=== PATIENT | female | born 1935 | race Caucasian/White ===

== ENCOUNTER → 2018-01-29 15:19 | Outpatient (CLI) | payer MEDICARE, OTHER, SELFPAY ==
--- NOTE | 2018-01-29 15:21 | DI.RAD.S_ITS ---
PROCEDURE: XR FINGER RT MIN 2V INDICATIONS: crushing injury with laceration 2 days TECHNIQUE: AP hand, 2 views of the middle finger(s) acquired. COMPARISON: None. FINDINGS: Bones: There may be a nondisplaced fracture through the proximal shaft of the distal phalanx of the middle finger. Degenerative joint disease incidentally noted. Soft tissues: No suspicious soft tissue calcifications. IMPRESSION: Possible nondisplaced fracture distal phalanx of the middle finger. Reexamination in 7-10 days advised. Dictated by: Jan Cali M.D. on 01/29/2018 at 15:45 Approved by: Jan Cali M.D. on 01/29/2018 at 15:49
== END ==
PROVIDERS: Family Provider Family Medicine; PCP Family Medicine; Visit Provider Internal Medicine
DX: S67.192A Crushing injury of right middle finger, initial encounter (principal)
CPT/HCPCS: 73140

== ENCOUNTER → 2018-09-17 12:21 | Outpatient (CLI) | payer MEDICARE, OTHER, SELFPAY ==
--- NOTE | 2018-09-17 | DI.MG.S_ITS ---
BILATERAL DIGITAL SCREENING MAMMOGRAM 3D/2D WITH CAD POST LUMPECTOMY: 09/17/2018 CLINICAL: Routine screening. Personal history of right breast cancer. Family history of breast cancer. Comparison is made to exams dated: 09/15/2017 mammogram, 09/05/2016 mammogram, 09/04/2015 mammogram, and 09/01/2014 mammogram - [facility]. There are scattered fibroglandular elements in both breasts. Current study was also evaluated with a Computer Aided Detection (CAD) system. There are benign post operative findings in the right breast. There also are benign vascular calcifications in both breasts. No significant masses, calcifications, or other findings are seen in either breast. There has been no significant interval change. IMPRESSION: There is no mammographic evidence of malignancy. A 1 year screening mammogram is recommended. This exam was interpreted at Station ID: [id number]. NOTE: For mammograms, a report in lay terms will be sent to the patient. Approximately 15% of breast malignancies will not be visualized mammographically. In the management of a palpable breast mass, a negative mammogram must not discourage biopsy of a clinically suspicious lesion. Electronically Signed By: Fausto garcia/dai:09/17/2018 17:53:08 letter sent: Normal Exam ACR BI-RADS Category 2: Benign Finding(s) 3342F
[2018-09-17 14:18] LABS: Add Manual Diff / Slide Review NO; Basophils Absolute Auto 100 /uL (0-100); Basophils Percent Auto 1.7 % (0-2); Eosinophils Absolute Auto 100 /uL (0-450); Eosinophils Percent Auto 2.2 % (2-4); Hematocrit 41.5 % (36-46); Hemoglobin 13.9 g/dL (12.0-16.0); Lymphocytes Absolute Auto 1400 /uL (1100-4500); Lymphocytes Percent Auto 32.8 % (25-40); Mean Corpuscular HGB Conc 33.6 % (30-36); Mean Corpuscular Volume 95.3 fL (80-100); Monocytes Absolute Auto 300 /uL (0-900); Monocytes Percent Auto 5.9 % (3-14); Neutrophils Absolute Auto 2400 /uL (1500-7000); Neutrophils Percent Auto 57.4 % (50-75); Platelet Count 298 X10^3/uL (150-400); Red Blood Cell Count 4.36 X10^6/uL (4.0-5.2); Red Cell Distribution Width 14.2 % (11.6-14.8); White Blood Cell Count 4.2 X10^3/uL (4.5-11.0)
[2018-09-17 15:43] LABS: Alanine Aminotransferase 22 IU/L (9-52); Albumin 4.3 g/dL (3.5-5.0); Albumin Globulin Ratio 1.5 (1.0-2.8); Alkaline Phosphatase 98 U/L (38-126); Aspartate Aminotransferase 21 IU/L (14-36); BUN Creatinine Ratio 32.5 (6-22); Bilirubin Total 0.6 mg/dL (0.2-1.3); Blood Urea Nitrogen 26 mg/dL (7-17); Calcium 9.5 mg/dL (8.4-10.2); Carbon Dioxide 29 mmol/L (22-32); Chloride 100 mmol/L (98-107); Cholesterol 276 mg/dL (140-199); Estimated Glomerular Filt Rate > 60.0 mL/min (>60); Globulin 2.9 g/dL (1.7-4.1); Glucose 96 mg/dL (80-110); HDL Cholesterol 87 mg/dL (40-60); HEMOLYSIS < 15 (0-50); LDL Cholesterol Calculated 173 mg/dL (<100); Potassium 4.4 mmol/L (3.4-5.1); Sodium 138 mmol/L (137-145); Total Protein 7.2 g/dL (6.3-8.2); Triglycerides 78 mg/dL (35-150)
== END ==
PROVIDERS: PCP Family Medicine; Visit Provider Family Medicine
DX: Z12.31 Encounter for screening mammogram for malignant neoplasm of breast (principal); Z85.3 Personal history of malignant neoplasm of breast; Z80.3 Family history of malignant neoplasm of breast; E03.9 Hypothyroidism, unspecified; E78.2 Mixed hyperlipidemia
CPT/HCPCS: 36415; 77063; 77067; 80053; 80061; 84443; 85025

== ENCOUNTER → 2019-05-31 14:14 | Outpatient (CLI) | payer MEDICARE, OTHER, SELFPAY ==
--- NOTE | 2019-05-31 14:22 | DI.RAD.S_ITS ---
PROCEDURE: XR CHEST 2V INDICATIONS: r/o pnx TECHNIQUE: 2 views of the chest were acquired. COMPARISON: [facility], CHEST 2 VIEW, 11/05/2008, 14:20. [facility], CHEST 2 VIEW, 07/25/2006, 16:57. FINDINGS: Surgical changes and devices: Right breast and right axilla surgical clips. Lungs and pleura: Lungs appear clear. No pleural effusions or pneumothorax. Mediastinum: Mediastinal contours are normal. Heart size is normal. Bones and chest wall: No suspicious bony abnormalities. Soft tissues appear unremarkable. IMPRESSION: No acute cardiopulmonary abnormality. Dictated by: Vernon Nguyen M.D. on 05/31/2019 at 15:01 Approved by: Vernon Nguyen M.D. on 05/31/2019 at 15:02
== END ==
PROVIDERS: PCP Family Medicine; Visit Provider Nurse Practitioner
DX: R05 Cough (principal)
CPT/HCPCS: 71046

== ENCOUNTER → 2020-04-14 16:22 | Outpatient (CLI) | payer MEDICARE, OTHER, SELFPAY ==
--- NOTE | 2020-04-14 | DI.MG.S_ITS ---
BILATERAL DIGITAL SCREENING MAMMOGRAM 3D/2D WITH CAD: 04/14/2020 CLINICAL: Routine screening. Personal history of right breast cancer. Family history of breast cancer. Comparison is made to exams dated: 09/17/2018 mammogram, 09/15/2017 mammogram, and 09/05/2016 mammogram - [facility]. There are scattered fibroglandular elements in both breasts. Current study was also evaluated with a Computer Aided Detection (CAD) system. There are benign vascular calcifications in both breasts. There also are benign post operative findings in the right breast. No significant masses, calcifications, or other findings are seen in either breast. There has been no significant interval change. IMPRESSION: BENIGN There is no mammographic evidence of malignancy. A 1 year screening mammogram is recommended. This exam was interpreted at Station ID: [id number]. NOTE: For mammograms, a report in lay terms will be sent to the patient. Approximately 15% of breast malignancies will not be visualized mammographically. In the management of a palpable breast mass, a negative mammogram must not discourage biopsy of a clinically suspicious lesion. Electronically Signed By: Cresencio lui/dai:04/14/2020 17:16:39 letter sent: Normal Exam ACR BI-RADS Category 2: Benign Finding(s) 3342F
== END ==
PROVIDERS: PCP Family Medicine; Referring Provider Family Medicine; Visit Provider Family Medicine
DX: Z12.31 Encounter for screening mammogram for malignant neoplasm of breast (principal); Z85.3 Personal history of malignant neoplasm of breast; Z80.3 Family history of malignant neoplasm of breast
CPT/HCPCS: 77063; 77067

== ENCOUNTER → 2020-09-24 16:08 | Outpatient (CLI) | payer MEDICARE, OTHER, SELFPAY ==
--- NOTE | 2020-09-24 16:12 | DI.RAD.S_ITS ---
PROCEDURE: XR HAND LT MIN 3V INDICATIONS: l hand pain TECHNIQUE: 3 views of the hand(s) acquired. COMPARISON: None. FINDINGS: Bones: No fractures or dislocations. Carpal bones are normally aligned. No suspicious bony lesions. 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 Mild to moderate 1st through 5th interphalangeal joint osteoarthritis. Mild 2nd through 5th MCP joint osteoarthritis. Soft tissues: No suspicious soft tissue calcifications. IMPRESSION: No fracture. No acute osseous lesion. If symptoms and/or clinical suspicion for pathology persists, further assessment with repeat radiographs (7-10 days) or advanced imaging (e.g. CT, MRI or bone scan) should be considered. Dictated by: Edith Tate MD, PhD on 09/24/2020 at 16:46 Approved by: Edith Tate MD, PhD on 09/24/2020 at 16:47
== END ==
PROVIDERS: PCP Family Medicine; Referring Provider Physician Assistant; Visit Provider Physician Assistant
DX: M79.642 Pain in left hand (principal)
CPT/HCPCS: 73130

== ENCOUNTER → 2020-10-28 08:33 | Outpatient (CLI) | payer MEDICARE, OTHER, SELFPAY ==
[2020-10-28 09:42] LABS: Add Manual Diff / Slide Review NO; Basophils Absolute Auto 0 /uL (0-100); Eosinophils Absolute Auto 100 /uL (0-450); Eosinophils Percent Auto 3.7 % (2-4); Hematocrit 38.5 % (36-46); Hemoglobin 12.8 g/dL (12.0-16.0); Lymphocytes Absolute Auto 1200 /uL (1100-4500); Lymphocytes Percent Auto 32.8 % (25-40); Mean Corpuscular HGB Conc 33.2 % (30-36); Mean Corpuscular Hemoglobin 31.8 PG (26-34); Mean Corpuscular Volume 95.9 fL (80-100); Monocytes Absolute Auto 300 /uL (0-900); Monocytes Percent Auto 7.2 % (3-14); Neutrophils Absolute Auto 2000 /uL (1500-7000); Neutrophils Percent Auto 55.3 % (50-75); Platelet Count 262 X10^3/uL (150-400); Red Blood Cell Count 4.02 X10^6/uL (4.0-5.2); Red Cell Distribution Width 14.2 % (11.6-14.8); White Blood Cell Count 3.6 X10^3/uL (4.5-11.0)
[2020-10-28 10:05] LABS: Alanine Aminotransferase 11 IU/L (<35); Albumin 3.4 g/dL (3.5-5.0); Albumin Globulin Ratio 1.3 (1.0-2.8); Alkaline Phosphatase 75 U/L (38-126); Aspartate Aminotransferase 22 IU/L (14-36); BUN Creatinine Ratio 37.2 (6-22); Bilirubin Total 0.3 mg/dL (0.2-1.3); Blood Urea Nitrogen 29 mg/dL (7-17); Calcium 9.1 mg/dL (8.4-10.2); Carbon Dioxide 30 mmol/L (22-32); Chloride 107 mmol/L (98-107); Cholesterol 248 mg/dL (140-199); Estimated Glomerular Filt Rate > 60.0 mL/min (>60); Globulin 2.6 g/dL (1.7-4.1); Glucose 91 mg/dL (80-110); HDL Cholesterol 71 mg/dL (40-60); HEMOLYSIS < 15 (0-50); LDL Cholesterol Calculated 169 mg/dL (<100); Potassium 4.4 mmol/L (3.4-5.1); Sodium 139 mmol/L (137-145); Triglycerides 39 mg/dL (35-150)
[2020-10-28 10:33] LABS: TSH w/ Reflex to FT4 1.19 uIU/mL (0.47-4.68)
== END ==
PROVIDERS: PCP Family Medicine; Referring Provider Family Medicine; Visit Provider Family Medicine
DX: E03.9 Hypothyroidism, unspecified (principal)
CPT/HCPCS: 36415; 80053; 80061; 84443; 85025

== ENCOUNTER → 2021-04-16 17:06 | Outpatient (CLI) | payer MEDICARE, OTHER, SELFPAY ==
--- NOTE | 2021-04-16 17:08 | DI.MG.S_ITS ---
BILATERAL DIGITAL SCREENING MAMMOGRAM 3D/2D WITH CAD: 04/16/2021 CLINICAL: Family history of breast cancer. Comparison is made to exams dated: 04/14/2020 mammogram, 09/17/2018 mammogram, and 09/15/2017 mammogram - [facility]. There are scattered fibroglandular elements in both breasts. Current study was also evaluated with a Computer Aided Detection (CAD) system. There are benign vascular calcifications in the right breast. There also are stable benign vascular calcifications in the left breast. Additionally, there are benign post operative findings in the right breast. No significant masses, calcifications, or other findings are seen in either breast. There has been no significant interval change. IMPRESSION: BENIGN There is no mammographic evidence of malignancy. A 1 year screening mammogram is recommended. This exam was interpreted at Station ID: [id number]. NOTE: For mammograms, a report in lay terms will be sent to the patient. Approximately 15% of breast malignancies will not be visualized mammographically. In the management of a palpable breast mass, a negative mammogram must not discourage biopsy of a clinically suspicious lesion. Electronically Signed By: Mary simmons/dai:04/19/2021 07:54:55 letter sent: Normal Exam ACR BI-RADS Category 2: Benign Finding(s) 3342F
== END ==
PROVIDERS: PCP Family Medicine; Referring Provider Family Medicine; Visit Provider Family Medicine
DX: Z12.31 Encounter for screening mammogram for malignant neoplasm of breast (principal); Z80.3 Family history of malignant neoplasm of breast
CPT/HCPCS: 77063; 77067

== ENCOUNTER → 2021-10-26 10:29 | Outpatient (CLI) | payer MEDICARE, OTHER, SELFPAY ==
[2021-10-26 11:14] LABS: Add Manual Diff / Slide Review NO; Basophils Absolute Auto 0 /uL (0-100); Eosinophils Absolute Auto 200 /uL (0-450); Eosinophils Percent Auto 6.4 % (2-4); Hematocrit 36.8 % (36-46); Hemoglobin 12.4 g/dL (12.0-16.0); Lymphocytes Absolute Auto 1100 /uL (1100-4500); Lymphocytes Percent Auto 29.5 % (25-40); Mean Corpuscular HGB Conc 33.7 % (30-36); Mean Corpuscular Hemoglobin 31.8 PG (26-34); Mean Corpuscular Volume 94.3 fL (80-100); Monocytes Absolute Auto 300 /uL (0-900); Monocytes Percent Auto 7.6 % (3-14); Neutrophils Absolute Auto 2000 /uL (1500-7000); Neutrophils Percent Auto 55.5 % (50-75); Platelet Count 268 X10^3/uL (150-400); Red Cell Distribution Width 13.9 % (11.6-14.8); White Blood Cell Count 3.7 X10^3/uL (4.5-11.0)
[2021-10-26 11:47] LABS: Alanine Aminotransferase 11 IU/L (<35); Albumin 3.2 g/dL (3.5-5.0); Albumin Globulin Ratio 1.3 (1.0-2.8); Alkaline Phosphatase 82 U/L (38-126); Aspartate Aminotransferase 21 IU/L (14-36); BUN Creatinine Ratio 33.7 (6-22); Bilirubin Total 0.5 mg/dL (0.2-1.3); Blood Urea Nitrogen 28 mg/dL (7-17); Calcium 8.7 mg/dL (8.4-10.2); Carbon Dioxide 31 mmol/L (22-32); Chloride 108 mmol/L (98-107); Estimated Glomerular Filt Rate > 60 mL/min (>60); Globulin 2.5 g/dL (1.7-4.1); Glucose 91 mg/dL (80-110); HEMOLYSIS < 15 (0-50); Potassium 4.7 mmol/L (3.4-5.1); Sodium 140 mmol/L (137-145); Total Protein 5.7 g/dL (6.3-8.2)
[2021-10-26 12:18] LABS: Thyroid Stimulating Hormone 0.557 uIU/mL (0.47-4.68)
== END ==
PROVIDERS: PCP Family Medicine; Referring Provider Family Medicine; Visit Provider Family Medicine
DX: E03.9 Hypothyroidism, unspecified (principal)
CPT/HCPCS: 36415; 80053; 84443; 85025

== ENCOUNTER → 2022-04-19 17:06 | Outpatient (CLI) | payer MEDICARE, OTHER, SELFPAY ==
--- NOTE | 2022-04-19 17:08 | DI.MG.S_ITS ---
BILATERAL DIGITAL SCREENING MAMMOGRAM 3D/2D WITH CAD POST LUMPECTOMY: 04/19/2022 CLINICAL: Routine screening. Routine screening. Personal history of right breast cancer. Family history of breast cancer. Comparison is made to exams dated: 04/16/2021 mammogram, 04/14/2020 mammogram, and 09/17/2018 mammogram - [facility]. There are scattered areas of fibroglandular density in both breasts (category b / 25%-50% glandular tissue). Current study was also evaluated with a Computer Aided Detection (CAD) system. There are benign vascular calcifications in both breasts. There also are benign post operative findings in the right breast. No significant masses, calcifications, or other findings are seen in either breast. There has been no significant interval change. IMPRESSION: BENIGN There is no mammographic evidence of malignancy. A 1 year screening mammogram is recommended. This exam was interpreted at Station ID: [id number]. NOTE: For mammograms, a report in lay terms will be sent to the patient. Approximately 15% of breast malignancies will not be visualized mammographically. In the management of a palpable breast mass, a negative mammogram must not discourage biopsy of a clinically suspicious lesion. Electronically Signed By: Nona holly/dai:04/20/2022 08:33:53 letter sent: Normal Exam ACR BI-RADS Category 2: Benign Finding(s) 3342F
== END ==
PROVIDERS: PCP Family Medicine; Referring Provider Family Medicine; Visit Provider Family Medicine
DX: Z12.31 Encounter for screening mammogram for malignant neoplasm of breast (principal); Z85.3 Personal history of malignant neoplasm of breast; Z80.3 Family history of malignant neoplasm of breast
CPT/HCPCS: 77063; 77067

== ENCOUNTER → 2022-10-24 11:39 | Outpatient (CLI) | payer MEDICARE, OTHER, SELFPAY ==
[2022-10-24 12:21] LABS: Add Manual Diff / Slide Review NO; Basophils Absolute Auto 0 /uL (0-100); Basophils Percent Auto 1.2 % (0-2); Eosinophils Absolute Auto 100 /uL (0-450); Hematocrit 37.9 % (36-46); Hemoglobin 12.8 g/dL (12.0-16.0); Lymphocytes Absolute Auto 1000 /uL (1100-4500); Lymphocytes Percent Auto 32.1 % (25-40); Mean Corpuscular HGB Conc 33.9 % (30-36); Mean Corpuscular Volume 94.2 fL (80-100); Monocytes Absolute Auto 200 /uL (0-900); Monocytes Percent Auto 7.8 % (3-14); Neutrophils Absolute Auto 1700 /uL (1500-7000); Neutrophils Percent Auto 55.9 % (50-75); Platelet Count 262 X10^3/uL (150-400); Red Blood Cell Count 4.02 X10^6/uL (4.0-5.2); Red Cell Distribution Width 13.7 % (11.6-14.8); White Blood Cell Count 3.1 X10^3/uL (4.5-11.0)
[2022-10-24 12:31] LABS: Alanine Aminotransferase 17 IU/L (<35); Albumin 3.6 g/dL (3.5-5.0); Albumin Globulin Ratio 1.3 (1.0-2.8); Alkaline Phosphatase 85 U/L (38-126); Aspartate Aminotransferase 24 IU/L (14-36); BUN Creatinine Ratio 28.8 (6-22); Bilirubin Total 0.7 mg/dL (0.2-1.3); Blood Urea Nitrogen 23 mg/dL (7-17); Calcium 8.8 mg/dL (8.4-10.2); Carbon Dioxide 28 mmol/L (22-32); Chloride 106 mmol/L (98-107); Cholesterol 273 mg/dL (140-199); Estimated Glomerular Filt Rate > 60 mL/min (>60); Globulin 2.7 g/dL (1.7-4.1); Glucose 96 mg/dL (80-110); HDL Cholesterol 77 mg/dL (40-60); HEMOLYSIS < 15 (0-50); LDL Cholesterol Calculated 184 mg/dL (<100); Potassium 4.5 mmol/L (3.4-5.1); Sodium 138 mmol/L (137-145); Total Protein 6.3 g/dL (6.3-8.2); Triglycerides 60 mg/dL (35-150)
[2022-10-24 13:57] LABS: TSH w/ Reflex to FT4 0.55 uIU/mL (0.47-4.68)
== END ==
PROVIDERS: PCP Family Medicine; Referring Provider Family Medicine; Visit Provider Family Medicine
DX: E03.9 Hypothyroidism, unspecified (principal)
CPT/HCPCS: 36415; 80053; 80061; 84443; 85025

== ENCOUNTER → 2023-04-20 12:48 | Outpatient (CLI) | payer MEDICARE, OTHER, SELFPAY ==
--- NOTE | 2023-04-20 | DI.MG.S_ITS ---
BILATERAL DIGITAL SCREENING MAMMOGRAM 3D/2D WITH CAD: 04/20/2023 CLINICAL: Routine screening. Personal history of right breast cancer. Family history of breast cancer. Comparison is made to exams dated: 04/19/2022 mammogram, 04/16/2021 mammogram, and 04/14/2020 mammogram - [facility]. There are scattered areas of fibroglandular density in both breasts (category b / 25%-50% glandular tissue). Current study was also evaluated with a Computer Aided Detection (CAD) system. There are benign vascular calcifications in both breasts. There also are benign post operative findings in the right breast. No significant masses, calcifications, or other findings are seen in either breast. There has been no significant interval change. IMPRESSION: BENIGN There is no mammographic evidence of malignancy. A 1 year screening mammogram is recommended. This exam was interpreted at Station ID: [id number]. NOTE: For mammograms, a report in lay terms will be sent to the patient. Approximately 15% of breast malignancies will not be visualized mammographically. In the management of a palpable breast mass, a negative mammogram must not discourage biopsy of a clinically suspicious lesion. Electronically Signed By: Cresencio lui/dai:04/20/2023 16:55:17 letter sent: Normal Exam ACR BI-RADS Category 2: Benign Finding(s) 3342F
== END ==
PROVIDERS: PCP Family Medicine; Referring Provider Family Medicine; Visit Provider Family Medicine
DX: Z12.31 Encounter for screening mammogram for malignant neoplasm of breast (principal); Z85.3 Personal history of malignant neoplasm of breast; Z80.3 Family history of malignant neoplasm of breast
CPT/HCPCS: 77063; 77067

== ENCOUNTER → 2023-08-09 09:37 | Outpatient (CLI) | payer MEDICARE, OTHER, SELFPAY ==
[2023-08-09 10:55] LABS: BUN Creatinine Ratio 32.1 (6-22); Blood Urea Nitrogen 25 mg/dL (7-17); Carbon Dioxide 29 mmol/L (22-32); Chloride 106 mmol/L (98-107); Estimated Glomerular Filt Rate > 60 mL/min (>60); Glucose 97 mg/dL (80-110); HEMOLYSIS < 15 (0-50); Potassium 4.6 mmol/L (3.4-5.1); Sodium 138 mmol/L (137-145)
[2023-08-09 11:12] LABS: Protein (Total) Urine Random 6 mg/dL (0-12); Protein Creatinine Ratio Urine 0.03 GRAM/24H
[2023-08-09 11:18] LABS: Thyroid Stimulating Hormone 0.332 uIU/mL (0.47-4.68)
== END ==
PROVIDERS: PCP Family Medicine; Referring Provider Family Medicine; Visit Provider Family Medicine
DX: E03.9 Hypothyroidism, unspecified (principal); R60.0 Localized edema
CPT/HCPCS: 36415; 80048; 82570; 84156; 84443

== ENCOUNTER 2023-11-18 22:33 | Emergency (ER) | payer MEDICARE, OTHER, SELFPAY ==
[2023-11-18 22:37] VITALS: BP 227/98; PULSE 84; RESP 22; TEMP 36.4; O2SAT 100; BMI 23.0
[2023-11-18 23:26] VITALS: PULSE 78; RESP 26
[2023-11-18 23:28] LABS: Bacteria Urine None Seen; Culture Indicated Urine Cult Not Indicated; RBC Urine 1-5/HPF (0-5/HPF); Squamous Epithelial Cell Urine 0-1 /HPF (0-5/HPF); Urine Volume 10mL (spun); WBC Urine None Seen (0-5/HPF)
[2023-11-18 23:30] VITALS: PULSE 80; RESP 21; O2SAT 99
[2023-11-18 23:31] VITALS: BP 240/100; PULSE 80; RESP 30; O2SAT 100
[2023-11-18 23:34] LABS: Add Manual Diff / Slide Review NO; Basophils Absolute Auto 100 /uL (0-100); Basophils Percent Auto 1.1 % (0-2); Eosinophils Absolute Auto 200 /uL (0-450); Eosinophils Percent Auto 2.9 % (2-4); Hematocrit 40.7 % (36-46); Hemoglobin 13.6 g/dL (12.0-16.0); Lymphocytes Absolute Auto 1600 /uL (1100-4500); Lymphocytes Percent Auto 30.8 % (25-40); Mean Corpuscular HGB Conc 33.4 % (30-36); Mean Corpuscular Volume 95.9 fL (80-100); Monocytes Absolute Auto 400 /uL (0-900); Monocytes Percent Auto 7.3 % (3-14); Neutrophils Absolute Auto 3100 /uL (1500-7000); Neutrophils Percent Auto 57.9 % (50-75); Platelet Count 243 X10^3/uL (150-400); Red Blood Cell Count 4.25 X10^6/uL (4.0-5.2); Red Cell Distribution Width 14.6 % (11.6-14.8); White Blood Cell Count 5.3 X10^3/uL (4.5-11.0)
[2023-11-18] MEDS: MORPHINE 4 MG/ML INJ IV (23:38)
[2023-11-18] MEDS: ONDANSETRON 4 MG/2 ML INJ IV (23:38)
[2023-11-18 23:39] LABS: Alanine Aminotransferase 20 IU/L (<35); Albumin Globulin Ratio 1.3 (1.0-2.8); Alkaline Phosphatase 106 U/L (38-126); Aspartate Aminotransferase 27 IU/L (14-36); BUN Creatinine Ratio 36.1 (6-22); Bilirubin Total 0.6 mg/dL (0.2-1.3); Blood Urea Nitrogen 30 mg/dL (7-17); Calcium 9.1 mg/dL (8.4-10.2); Carbon Dioxide 26 mmol/L (22-32); Chloride 110 mmol/L (98-107); Estimated Glomerular Filt Rate > 60 mL/min (>60); Globulin 3.1 g/dL (1.7-4.1); Glucose 102 mg/dL (80-110); HEMOLYSIS 22 (0-50); Lipase 123 U/L (23-300); Potassium 3.9 mmol/L (3.4-5.1); Sodium 140 mmol/L (137-145); Total Protein 7.1 g/dL (6.3-8.2)
--- NOTE | 2023-11-18 23:53 | ED_ITS ---
HPI - Back Pain/Injury General Chief Complaint: Back Pain/Injury Stated Complaint: sharp low back pain Time Seen by Provider: 11/18/23 23:08 Source: patient and family Mode of arrival: Ambulatory Limitations: no limitations History of Present Illness HPI Narrative: 88-year-old female with history of hypothyroidism, prior breast cancer with lumpectomy, multiple prior abdominal surgeries including for incarcerated hernia, hysterectomy who presents with complaint of sudden onset left flank and left lower quadrant pain. Patient states no fevers. She has felt a little chilled. She has had nausea but no vomiting. She states she was stooling regularly today with no black or bloody stools. She denies any dysuria, urgency or frequency. No hematuria, no vaginal bleeding or discharge. Patient states her only home medication is Synthroid. She has had prior abdominal surgeries for hernia repair, hysterectomy, she has had prior knee surgeries. She has had lumpectomy. Patient states reported allergy to penicillin had hives when she was young. Denies tobacco, alcohol or recreational drugs. Dr. Cabrales is her primary care physician. Related Data Previous Rx's Medication Instructions Recorded triamterene 37.5 1 cap PO DAILY #90 caps 11/01/22 mg-hydrochlorothiazide 25 mg capsule Disabled Parking Permit #1 ea 05/02/23 levothyroxine 88 mcg tablet 88 mcg PO DAILY #90 tabs 10/18/23 Allergies Allergy/AdvReac Type Severity Reaction Status Date / Time Penicillins Allergy Mild RASH Verified 10/18/23 13:57 Sulfa (Sulfonamide Allergy Mild RASH Verified 10/18/23 13:57 Antibiotics) codeine AdvReac Mild NAUSEA Verified 10/18/23 13:57 Review of Systems Review of Systems ROS Unobtainable: All systems reviewed & are unremarkable except as noted in HPI and below Patient History Medical History (Updated 11/19/23 @ 02:42 by Camelia Lobo DO) Polio Peroneal nerve palsy Arthritis Degenerative joint disease of knee, right Degenerative joint disease of knee, 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 Amblyopia Mitral valve prolapse Hyperlipidemia GERD (gastroesophageal reflux disease) Breast cancer (2001) Surgical History History of carpal tunnel repair (2008) Status post breast lumpectomy (2001) History of knee replacement Status post hysterectomy with oophorectomy (1986) Family History Family/Other Breast cancer Family/Other Breast cancer Social History marital status: number of children: 5 household members: other lives independently: Yes pets and animals: Yes education level: college occupational status: other Smoking Status: Never smoker alcohol intake: never substance use type: does not use Smoking Status: Never smoker Exam Narrative Exam Narrative: GENERAL: Alert and oriented x three, female in moderate distress. HEENT: Head normocephalic, atraumatic, EOMI, pupils reactive, face symmetric, moist mucous membranes NECK: Supple, full range of motion CARDIOVASCULAR: Regular rate and rhythm without murmurs, rubs or gallops. RESPIRATORY: Breath sounds equal bilaterally, no wheezes rales or rhonchi. ABDOMEN: Soft, patient has left sided pain. Greatest at left lower quadrant. Nondistended. Normoactive bowel sounds all 4 quadrants. No guarding or rebound, rigidity, no mass : Mild left CVA tenderness, no right CVA tenderness EXTREMITIES: Normal range of motion, no clubbing or edema. 2+ pulses bilateral lower extremities. Neurovascularly intact NEUROLOGICAL: Cranial nerves II through XII grossly intact. Moving all extremities SKIN: Warm, dry, no petechiae, no rashes or lesions. Initial Vital Signs Initial Vital Signs: Vital Signs Temperature 97.5 F L 11/18/23 22:37 Pulse Rate 84 11/18/23 22:37 Respiratory Rate 22 11/18/23 22:37 Blood Pressure 227/98 H 11/18/23 22:37 Pulse Oximetry 100 11/18/23 22:37 Oxygen Delivery Method Room Air 11/18/23 22:37 Course Orders Ordered: Discontinued Medications Hydromorphone HCl (Hydromorphone 0.5 Mg Inj) 0.5 mg IV NOW ONE Stop: 11/19/23 00:09 Last Admin: 11/19/23 06:40 Dose: Not Given Documented By: GUS Hydromorphone HCl (Hydromorphone 1 Mg Inj) 1 mg IV NOW ONE Stop: 11/19/23 01:30 Last Admin: 11/19/23 01:37 Dose: 1 mg Documented By: ALEYDA Sodium Chloride (Normal Saline 0.9%) 1,000 mls @ 125 mls/hr IV CONT MAGDA Last Admin: 11/19/23 06:44 Dose: 125 mls/hr Documented By: ALEYDA Lorazepam (Lorazepam 2 Mg/Ml Inj) 0.5 mg IV NOW ONE Stop: 11/19/23 00:11 Last Admin: 11/19/23 00:16 Dose: 0.5 mg Documented By: ALEYDA Metoclopramide HCl (Metoclopramide 10 Mg/2 Ml Inj) 10 mg IV NOW ONE Stop: 11/19/23 00:52 Last Admin: 11/19/23 01:37 Dose: 10 mg Documented By: ALEYDA Metoclopramide HCl (Metoclopramide 10 Mg/2 Ml Inj) 10 mg IV NOW ONE Stop: 11/19/23 07:06 Last Admin: 11/19/23 07:12 Dose: 10 mg Documented By: ALEYDA Morphine Sulfate (Morphine 4 Mg/Ml Inj) 4 mg IV NOW ONE Stop: 11/18/23 23:25 Last Admin: 11/18/23 23:38 Dose: 4 mg Documented By: ALEYDA Ondansetron HCl (Ondansetron 4 Mg Odt) 4 mg PO NOW PRN PRN Reason: Nausea And Vomiting Ondansetron HCl (Ondansetron 4 Mg/2 Ml Inj) 4 mg IV NOW PRN PRN Reason: Nausea And Vomiting Ondansetron HCl (Ondansetron 4 Mg/2 Ml Inj) 4 mg IV NOW ONE Stop: 11/18/23 23:25 Last Admin: 11/18/23 23:38 Dose: 4 mg Documented By: ALEYDA Tamsulosin HCl (Tamsulosin 0.4 Mg Capsule) 0.4 mg PO NOW ONE Stop: 11/19/23 02:45 Last Admin: 11/19/23 04:53 Dose: 0.4 mg Documented By: ALEYDA Vital Signs Vital signs: Vital Signs - 8 hr 11/18/23 22:37 11/18/23 23:26 11/18/23 23:30 Temperature 97.5 F L Pulse Rate 84 78 80 Respiratory Rate 22 26 H 21 Blood Pressure 227/98 H Pulse Oximetry 100 99 Oxygen Delivery Method Room Air Oxygen Flow Rate 11/18/23 23:31 11/18/23 23:31 11/19/23 00:00 Temperature Pulse Rate 80 Respiratory Rate 30 H Blood Pressure 240/100 H 213/87 H Pulse Oximetry 100 Oxygen Delivery Method Oxygen Flow Rate 11/19/23 00:00 11/19/23 00:34 11/19/23 01:00 Temperature Pulse Rate 77 85 83 Respiratory Rate 14 15 19 Blood Pressure Pulse Oximetry 98 97 98 Oxygen Delivery Method Oxygen Flow Rate 11/19/23 01:30 11/19/23 01:55 11/19/23 01:56 Temperature Pulse Rate 81 83 Respiratory Rate 18 16 Blood Pressure 179/80 H Pulse Oximetry 99 97 Oxygen Delivery Method Room Air Oxygen Flow Rate 2 11/19/23 01:56 11/19/23 02:00 11/19/23 02:00 Temperature Pulse Rate 82 83 Respiratory Rate 10 L 12 Blood Pressure 167/76 H Pulse Oximetry 98 97 Oxygen Delivery Method Oxygen Flow Rate 11/19/23 02:30 11/19/23 02:30 11/19/23 03:00 Temperature Pulse Rate 86 Respiratory Rate 12 Blood Pressure 167/79 H 141/72 H Pulse Oximetry 97 Oxygen Delivery Method Oxygen Flow Rate 11/19/23 03:00 11/19/23 03:30 11/19/23 03:30 Temperature Pulse Rate 85 77 Respiratory Rate 12 9 L Blood Pressure 150/68 H Pulse Oximetry 97 99 Oxygen Delivery Method Nasal Cannula Oxygen Flow Rate 2 11/19/23 04:00 11/19/23 04:00 11/19/23 04:30 Temperature Pulse Rate 75 71 Respiratory Rate 9 L 27 H Blood Pressure 132/60 Pulse Oximetry 100 96 Oxygen Delivery Method Nasal Cannula Oxygen Flow Rate 2 11/19/23 04:30 11/19/23 05:00 11/19/23 05:00 Temperature Pulse Rate 74 Respiratory Rate 12 Blood Pressure 123/58 L 162/71 H Pulse Oximetry 100 Oxygen Delivery Method Nasal Cannula Oxygen Flow Rate 2 11/19/23 05:07 11/19/23 05:07 11/19/23 05:30 Temperature Pulse Rate 103 H Respiratory Rate 25 H Blood Pressure 161/68 H 134/63 Pulse Oximetry Oxygen Delivery Method Oxygen Flow Rate 11/19/23 05:30 Temperature Pulse Rate 80 Respiratory Rate 15 Blood Pressure Pulse Oximetry 95 Oxygen Delivery Method Oxygen Flow Rate MDM - Back Pain/Injury Lab Data 11/18/23 23:19 11/18/23 23:19 Labs: Lab Results 11/18/23 11/18/2311/18/24 Range/Units 23:00 23:19 05:02 WBC 5.3 (4.5-11.0) X10^3/uL RBC 4.25 (4.0-5.2) X10^6/uL Hgb 13.6 (12.0-16.0) g/dL Hct 40.7 (36-46) % MCV 95.9 (80-100) fL MCH 32.0 (26-34) PG MCHC 33.4 (30-36) % RDW 14.6 (11.6-14.8) % Plt Count 243 (150-400) X10^3/uL Neut % (Auto) 57.9 (50-75) % Lymph % (Auto) 30.8 (25-40) % [place] % (Auto) 7.3 (3-14) % Eos % (Auto) 2.9 (2-4) % Baso % (Auto) 1.1 (0-2) % Neut # (Auto) 3100 (7087-6520) /uL Lymph # (Auto) 1600 (3423-9836) /uL [place] # (Auto) 400 (0-900) /uL Eos # (Auto) 200 (0-450) /uL Baso # (Auto) 100 (0-100) /uL Sodium 140 (137-145) mmol/L Potassium 3.9 (3.4-5.1) mmol/L Chloride 110 H (98-107) mmol/L Carbon Dioxide 26 (22-32) mmol/L BUN 30 H (7-17) mg/dL Creatinine 0.83 (0.52-1.04) mg/dL Estimated GFR > 60 (>60) mL/min BUN/Creatinine Ratio 36.1 H (6-22) Glucose 102 (80-110) mg/dL Calcium 9.1 (8.4-10.2) mg/dL Total Bilirubin 0.6 (0.2-1.3) mg/dL AST 27 (14-36) IU/L ALT 20 (<35) IU/L Alkaline Phosphatase 106 (38-126) U/L Total Protein 7.1 (6.3-8.2) g/dL Albumin 4.0 (3.5-5.0) g/dL Globulin 3.1 (1.7-4.1) g/dL Albumin/Globulin Ratio 1.3 (1.0-2.8) Lipase 123 (23-300) U/L Urine RBC 1-5/hpf (0-5/HPF) Urine WBC None seen (0-5/HPF) Ur Squamous Epith Cells 0-1 /hpf (0-5/HPF) Urine Bacteria None seen (None) Ur Culture Indicated? Cult not indicated Vol Urine Centrifuged 10ml (spun) SARS-CoV-2 (PCR) Negative (Negative) Point of Care Testing Test Results Negative Urine Dip Bedside Urine Glucose Negative Bedside Urine Bilirubin - Negative Bedside Urine Ketone - Negative Urine Specific [place] 1.015 Bedside Urine Occult Blood + Bedside Urine pH 7 Bedside Urine Protein - Negative Bedside Urine Urobilinogen - Negative Bedside Urine Nitrite - Negative Bedside Urine Leukocytes - Negative Esterase Imaging Data CT scan - abdomen/pelvis: Radiologist's Impression: Kelsey Robles??88??F??1935 ? Allergy/Adv: Penicillins, Sulfa (Sulfonamide Antibiotics), codeine (More??) Close Abdomen/Pelvis CT (Signed) Dm Snell - 11/19/23 Mammogram Screening (Signed) Cresencio Russ - 04/20/23 Mammogram Screening (Signed) Nona Bello - 04/19/22 Mammogram Screening (Signed) Mary Patterson - 04/16/21 Hand X-Ray (Signed) Edith Tate - 09/24/20 Mammogram Screening (Signed) Cresencio Russ - 04/14/20 Chest X-Ray (Signed) Vernon Nguyen - 05/31/19 Mammogram Screening (Signed) Fausto Allen - 09/17/18 Finger X-Ray (Signed) Jan Cali - 01/29/18 Launch?[place] [id number] CT Scan Report Signed Patient: Kelsey Robles MR#: [id number] : 1935 Acct:[id number] Age/Sex: 88 / F Date of Service: 11/19/23 Loc: ED Accession Number: [id number] Procedure: CT abdomen pelvis w con Ordering Provider: Camelia Lobo D.O. PROCEDURE: CT ABDOMEN PELVIS W CON INDICATIONS: l flank/llq pain, stone vs diverticulitis vs other TECHNIQUE: After the administration of intravenous contrast, axial sections acquired from the lung bases to the pubic symphysis. Coronal and sagittal reformats were performed. For radiation dose reduction, the following was used: automated exposure control, adjustment of mA and/or kV according to patient size. COMPARISON: None. FINDINGS: Lower thorax: The lung bases are clear. Heart size normal. No hiatal hernia. Liver: Normal in size and attenuation. No contour deformity present. Biliary system: No calcified cholelithiasis or pericholecystic inflammation. No intra or extrahepatic bile duct dilatation. Pancreas: Unremarkable without mass or inflammation evident. Spleen: Normal in size and density. Adrenals: Normal morphology and density. Reproductive system: Unremarkable as visualized. Urinary system: 5 mm calculus in the distal left ureter is 1 cm from the ureterovesical junction results in severe left hydronephrosis and hydroureter. Multiple bilateral peripelvic cysts present as well. No right hydronephrosis. Right renal scarring noted Gastrointestinal system: The bowel is unremarkable without evidence of bowel obstruction or inflammation. The stomach appears unremarkable. Multiple diverticula arise from the sigmoid colon without evidence of diverticulitis. Appendix: No findings to suggest acute appendicitis. Peritoneal spaces: No mesenteric or retroperitoneal adenopathy. No free air. No free fluid. Vasculature: The IVC, aorta and iliac vasculature are unremarkable. Abdominal wall: Abdominal wall intact without evidence of ventral or inguinal hernias. Musculoskeletal: Normal bone mineralization. No acute fractures. IMPRESSION: Severe left hydronephrosis associated with 5 mm distal ureteral calculus Additional chronic findings as above Approved by: Dm Snell M.D. on 11/19/2023 at 0:35 ECG Data Attestation: I personally reviewed and interpreted this ECG as follows: Prior ECG tracings: not available for review Interpretation: Sinus arrhythmia, rate 82 DC 156 QRS 82 QTC 436. [place] no acute ST elevation depression noted. No priors for comparison. MDM Narrative Medical decision making narrative: 88-year-old female with sudden onset left flank and left lower quadrant abdominal pain. Patient's exam she is quite tender on the left side little bit in the flank but much more so in the left lower quadrant. Fairly abrupt onset of symptoms. She does not appear septic, she is actually quite hypertensive. She is normal pulses bilateral lower extremities. She has had some nausea vomiting. Patient has not had similar symptoms past Urine does show small amount of blood 1-5 red blood cells, no white cells, 1 squamous no bacteria. No nitrates or leuks. CBC shows a white count of 5.3 hemoglobin of 13 platelets of 243. Sodium is 140 potassium 3 9 chloride 110, CO2 is 26 BUN 30 creatinine 0.83, glucose is 102 with otherwise normal LFTs, lipase is normal. CT abdomen pelvis with contrast was obtained to evaluate for vascular, infectious versus stone. Patient was given pain medication, she has had vomiting with codeine in the past. She was given Zofran. Was still quite nauseated and did throw up. Was given a dose of Ativan for pain/antinausea. Inadequate for pain control patient had additional pain medication, she did decrease her O2 for a period of time. Imaging shows, severe hydro with associated 5 mm distal ureteral calculus, patient has multiple bilateral peripelvic cyst present as well, no right hydro, patient has diverticula but without evidence of diverticulitis. Patient has had persistent vomiting, have tried multiple medications, different doses of pain medication as well. Patient has not been able to tolerate orals, pain finally been controlled but patient is likely going to require intervention although her stone is small. No obvious changes of infection in her urine she does not appear to be septic. Discussed with family if we can manage her pain and she can tolerate orals and eat and drink and potentially discharge home for follow up with Urology but at this time we will seek for transfer. We do not have in-house Urology so we will call for transfer. Spoke with they have limited beds, would recommend calling around but will check their availability. spoke with Dr. Pressley at [facility], tentatively accepts they have to clarify their bed status but would be willing to take patient for obstructive ureteral stone with severe hydro. Recheck patient's pain has not improved, she did get up to use the bathroom then had another episode of vomiting. Patient has been off O2. Patient has otherwise been stable here in the department. Discharge Plan Departure Patient Disposition: [facility] Clinical Impression: Kidney stone on left side, Hydronephrosis of left kidney Prescriptions: No Action triamterene-hydrochlorothiazid 37.5-25 mg capsule 1 cap PO DAILY Qty: 90 3RF (DME) Disabled Parking Permit See Rx Instructions .Route .MEDSUPPLY Qty: 1 0RF Rx Instructions: I find this patient to be medically disabled and qualified for disabled parking as indicated, and signed, on the accompanying application. levothyroxine 88 mcg tablet 88 mcg PO DAILY Qty: 90 0RF Referrals: Patricia Palmer DO [Primary Care Provider] -
[2023-11-19] VITALS (17 sets, daily range): BP systolic 121–213; BP diastolic 58–87; PULSE 71–103; RESP 9–27; O2SAT 93–100
--- NOTE | 2023-11-19 00:07 | DI.CT.S_ITS ---
PROCEDURE: CT ABDOMEN PELVIS W CON INDICATIONS: l flank/llq pain, stone vs diverticulitis vs other TECHNIQUE: After the administration of intravenous contrast, axial sections acquired from the lung bases to the pubic symphysis. Coronal and sagittal reformats were performed. For radiation dose reduction, the following was used: automated exposure control, adjustment of mA and/or kV according to patient size. COMPARISON: None. FINDINGS: Lower thorax: The lung bases are clear. Heart size normal. No hiatal hernia. Liver: Normal in size and attenuation. No contour deformity present. Biliary system: No calcified cholelithiasis or pericholecystic inflammation. No intra or extrahepatic bile duct dilatation. Pancreas: Unremarkable without mass or inflammation evident. Spleen: Normal in size and density. Adrenals: Normal morphology and density. Reproductive system: Unremarkable as visualized. Urinary system: 5 mm calculus in the distal left ureter is 1 cm from the ureterovesical junction results in severe left hydronephrosis and hydroureter. Multiple bilateral peripelvic cysts present as well. No right hydronephrosis. Right renal scarring noted Gastrointestinal system: The bowel is unremarkable without evidence of bowel obstruction or inflammation. The stomach appears unremarkable. Multiple diverticula arise from the sigmoid colon without evidence of diverticulitis. Appendix: No findings to suggest acute appendicitis. Peritoneal spaces: No mesenteric or retroperitoneal adenopathy. No free air. No free fluid. Vasculature: The IVC, aorta and iliac vasculature are unremarkable. Abdominal wall: Abdominal wall intact without evidence of ventral or inguinal hernias. Musculoskeletal: Normal bone mineralization. No acute fractures. IMPRESSION: Severe left hydronephrosis associated with 5 mm distal ureteral calculus Additional chronic findings as above Approved by: Dm Snell M.D. on 11/19/2023 at 0:35
[2023-11-19] MEDS: LORazepam 2 MG/ML INJ 0.5 MG IV (00:16)
[2023-11-19] MEDS: METOCLOPRAMIDE 10 MG/2 ML INJ IV ×2 (01:37→07:12)
[2023-11-19] MEDS: HYDROMORPHONE 1 MG INJ IV (01:37)
[2023-11-19] MEDS: TAMSULOSIN 0.4 MG CAPSULE PO (04:53)
[2023-11-19 05:16] LABS: COVID19 -Nasal RAPID Negative (Negative)
[2023-11-19] MEDS: SODIUM CHLORIDE 0.9% 1,000 ML 125 ML IV (06:44)
== END 2023-11-19 07:23 | disposition short-term general hospital (02) ==
PROVIDERS: Emergency Provider Emergency Medicine; PCP Family Medicine
DX: N13.2 Hydronephrosis with renal and ureteral calculous obstruction (principal); Z11.52 Encounter for screening for COVID-19
CPT/HCPCS: 36415; 74177; 80053; 81003; 81015; 81025; 83690; 85025; 87635; 93005; 96374; 96375; 96376; 99285; J1170; J2060; J2270; J2405; J2765; Q9967

== ENCOUNTER 2023-11-24 09:06 | Emergency (ER) | payer MEDICARE, OTHER, SELFPAY ==
[2023-11-24] VITALS (10 sets, daily range): BP systolic 143–206; BP diastolic 64–87; PULSE 76–87; RESP 11–33; TEMP 36.5; O2SAT 97–100; BMI 24.5
--- NOTE | 2023-11-24 09:31 | PC.NURSE ---
States she thinks she is still having pain from previous kidney stone. pt states she was given tyelonal and flomax w/o relief. Pt states she was told stone should pass w/o intervention. Pt expresses discomfort/pain
--- NOTE | 2023-11-24 09:32 | ED.ABDPAIN ---
HPI - Abdominal Pain General Chief Complaint: Urogenital-Female Stated Complaint: per pt kidney stone Time Seen by Provider: 11/24/23 09:25 Source: patient Mode of arrival: Ambulatory History of Present Illness HPI narrative: Patient is a 88-year-old with a known left-sided kidney stone presenting today with increased left-sided pain and left lower quadrant pain with nausea. She was seen evaluated here on November 18 diagnosed with a 5 mm nephrolithiasis with severe hydronephrosis. Due to inadequate pain control she was ultimately transferred to [facility] where she stayed for a few hours and was discharged. Apparently she had a repeat CT scan that did not show severe hydronephrosis and it was thought that she would pass the stone. She was sent home on Tylenol 1000 mg and tamsulosin. She reports that she has been doing well until early this morning were now the pain is out of control. She denies fever or chills. No evidence of UTI found previously. She is noted to be quite hypertensive but was previously hypertensive as well. No significant chest pain. Or other symptoms Related Data Previous Rx's Medication Instructions Recorded triamterene 37.5 1 cap PO DAILY #90 caps 11/01/22 mg-hydrochlorothiazide 25 mg capsule Disabled Parking Permit #1 ea 05/02/23 levothyroxine 88 mcg tablet 88 mcg PO DAILY #90 tabs 10/18/23 cephalexin 500 mg capsule 500 mg PO BID 7 days #14 caps 11/24/23 hydrocodone 5 mg-acetaminophen 325 1 tab PO Q6H PRN pain #10 tabs 11/24/23 mg tablet ibuprofen 400 mg tablet 400 mg PO Q8H PRN fever or pain 11/24/23 #20 tabs ondansetron 4 mg disintegrating 4 mg PO Q8H PRN nausea and 11/24/23 tablet vomiting #10 tabs Allergies Allergy/AdvReac Type Severity Reaction Status Date / Time Penicillins Allergy Mild RASH Verified 10/18/23 13:57 Sulfa (Sulfonamide Allergy Mild RASH Verified 10/18/23 13:57 Antibiotics) codeine AdvReac Mild NAUSEA Verified 10/18/23 13:57 Patient History Medical History (Updated 11/24/23 @ 11:37 by Martina Dunaway DO) Polio Peroneal nerve palsy Arthritis Degenerative joint disease of knee, right Degenerative joint disease of knee, 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 Amblyopia Mitral valve prolapse Hyperlipidemia GERD (gastroesophageal reflux disease) Breast cancer (2001) Surgical History History of carpal tunnel repair (2008) Status post breast lumpectomy (2001) History of knee replacement Status post hysterectomy with oophorectomy (1986) Family History Family/Other Breast cancer Family/Other Breast cancer Social History marital status: number of children: 5 household members: other lives independently: Yes pets and animals: Yes education level: college occupational status: other Smoking Status: Never smoker alcohol intake: never substance use type: does not use Smoking Status: Never smoker Substance Use Type: does not use Exam Initial Vital Signs Initial Vital Signs: Vital Signs Pulse Rate 87 11/24/23 09:23 Blood Pressure 206/82 H 11/24/23 09:23 Pulse Oximetry 98 11/24/23 09:23 GENERAL: Alert 88-year-old female appears uncomfortable and in and in [no acute] distress. HEENT: Head atraumatic,EOMI, pupils reactive, face symmetric, [moist] mucous membranes CARDIOVASCULAR: Regular rate and rhythm without murmurs, rubs or gallops. RESPIRATORY: Breath sounds equal bilaterally, no wheezes rales or rhonchi. ABDOMEN: Soft, left lower quadrant pain no distention no guarding or rebound : No CVA tenderness EXTREMITIES: Normal range of motion, no clubbing or edema. Neurovascularly intact NEUROLOGICAL: Alert and oriented x4.Normal gait and speech. SKIN: Warm, dry, no laceration, no petechiae, no rashes or lesions. Course Orders Ordered: ED Orders 11/24/23 09:23 Ictotest Urine Stat Urine Culture Stat Urine Microscopic Stat 11/24/23 09:32 CT kidney ureter bladder (KUB) Stat 11/24/23 09:57 Complete Blood Count AUTO DIFF Stat Comprehensive Metabolic Panel Stat Lipase Stat Discontinued Medications Ketorolac Tromethamine (Ketorolac 30 Mg/Ml Vial) 15 mg IV NOW ONE Stop: 11/24/23 09:33 Last Admin: 11/24/23 09:55 Dose: 15 mg Documented By: JEMIMA Ondansetron HCl (Ondansetron 4 Mg Odt) 4 mg SL NOW PRN PRN Reason: Nausea And Vomiting Ondansetron HCl (Ondansetron 4 Mg/2 Ml Inj) 4 mg IV NOW PRN PRN Reason: Nausea And Vomiting Ondansetron HCl (Ondansetron 4 Mg/2 Ml Inj) 4 mg IV NOW ONE Stop: 11/24/23 09:33 Last Admin: 11/24/23 09:55 Dose: 4 mg Documented By: JEMIMA Vital Signs Vital signs: Vital Signs - 8 hr 11/24/23 09:23 11/24/23 09:23 11/24/23 09:24 Temperature 97.7 F Pulse Rate 87 86 Respiratory Rate 22 Blood Pressure 206/82 H 206/82 H Pulse Oximetry 98 98 Oxygen Delivery Method Room Air 11/24/23 09:30 11/24/23 09:31 11/24/23 09:31 Temperature Pulse Rate 80 80 Respiratory Rate Blood Pressure 161/87 H Pulse Oximetry 100 100 Oxygen Delivery Method 11/24/23 10:10 11/24/23 10:11 11/24/23 10:11 Temperature Pulse Rate 79 77 Respiratory Rate 11 L 13 Blood Pressure 169/72 H Pulse Oximetry 97 99 Oxygen Delivery Method 11/24/23 10:30 11/24/23 10:31 11/24/23 10:31 Temperature Pulse Rate 80 76 Respiratory Rate 33 H 17 Blood Pressure 145/65 H Pulse Oximetry 97 100 Oxygen Delivery Method 11/24/23 11:00 11/24/23 11:00 11/24/23 11:52 Temperature Pulse Rate 78 78 Respiratory Rate 14 19 Blood Pressure 146/64 H 143/79 H Pulse Oximetry 99 100 Oxygen Delivery Method Room Air MDM - Abdominal Pain Lab Data 11/24/23 09:57 11/24/23 09:57 Labs: Lab Results 11/24/23 11/24/23 Range/Units 09:23 09:57 WBC 9.1 (4.5-11.0) X10^3/uL RBC 4.15 (4.0-5.2) X10^6/uL Hgb 13.0 (12.0-16.0) g/dL Hct 39.9 (36-46) % MCV 95.9 (80-100) fL MCH 31.3 (26-34) PG MCHC 32.7 (30-36) % RDW 14.7 (11.6-14.8) % Plt Count 284 (150-400) X10^3/uL Neut % (Auto) 88.2 H (50-75) % Lymph % (Auto) 6.8 L (25-40) % [place] % (Auto) 4.4 (3-14) % Eos % (Auto) 0.4 L (2-4) % Baso % (Auto) 0.2 (0-2) % Neut # (Auto) 8000 H (8360-5681) /uL Lymph # (Auto) 600 L (3213-4012) /uL [place] # (Auto) 400 (0-900) /uL Eos # (Auto) 0 (0-450) /uL Baso # (Auto) 0 (0-100) /uL Sodium 138 (137-145) mmol/L Potassium 4.9 (3.4-5.1) mmol/L Chloride 109 H (98-107) mmol/L Carbon Dioxide 25 (22-32) mmol/L BUN 28 H (7-17) mg/dL Creatinine 0.95 (0.52-1.04) mg/dL Estimated GFR 58 L (>60) mL/min BUN/Creatinine Ratio 29.5 H (6-22) Glucose 138 H (80-110) mg/dL Calcium 8.7 (8.4-10.2) mg/dL Total Bilirubin 1.1 (0.2-1.3) mg/dL AST 46 H (14-36) IU/L ALT 22 (<35) IU/L Alkaline Phosphatase 102 (38-126) U/L Total Protein 7.1 (6.3-8.2) g/dL Albumin 4.1 (3.5-5.0) g/dL Globulin 3.0 (1.7-4.1) g/dL Albumin/Globulin Ratio 1.4 (1.0-2.8) Lipase 113 (23-300) U/L Ur Bilirubin Confirm Negative (Negative) Urine RBC 1-5/hpf (0-5/HPF) Urine WBC 5-10/hpf H (0-5/HPF) Ur Squamous Epith Cells None seen (0-5/HPF) Amorphous Sediment 1+ Urine Bacteria Occasional (0-1) (None) Vol Urine Centrifuged 10ml (spun) Point of care testing: Urine Dip Bedside Urine Glucose Negative Bedside Urine Bilirubin + 1 Bedside Urine Ketone +/- 5 Urine Specific [place] 1.030 Bedside Urine Occult Blood ++ Bedside Urine pH 5.5 Bedside Urine Protein +/- 15 Bedside Urine Urobilinogen - Negative Bedside Urine Nitrite - Negative Bedside Urine Leukocytes +/- [address] scan - abdomen/pelvis: Radiologist's Impression: PROCEDURE: CT KIDNEY URETER BLADDER (KUB) INDICATIONS: left sided pain known kidney stone TECHNIQUE: Axial sections were acquired from the lung bases to the pubic symphysis. Coronal and sagittal reformats were performed. For radiation dose reduction, the following was used: automated exposure control, adjustment of mA and/or kV according to patient size. COMPARISON: [facility], CT, CT ABDOMEN PELVIS W CON, 11/19/2023, 0:14. FINDINGS: Image quality: Diagnostic. Lower Chest: No significant findings. URINARY: Right Kidney: No right hydronephrosis. There are multiple right peripelvic cysts and a prominent extrarenal pelvis. No nephrolithiasis. Right Ureter: No hydroureter or ureterolithiasis. Left Kidney: Multiple left peripelvic cysts are noted. There is likely left hydronephrosis and left lower pole perinephric fat stranding. No nephrolithiasis. Left Ureter: There is moderate left hydroureter. Two 4 mm calculi are present within the distal left ureter (series 2/images 51 and 52). No renal calculi were visualized in this region on the prior study dated November 19, 2023, however, the calculus within the distal left ureter near the ureterovesicular junction on the prior study is no longer visualized. Bladder: No bladder calculi. No bladder wall thickening. ABDOMEN: Liver: No contour-deforming solid mass. Gallbladder: No radiopaque gallstones or wall thickening. Biliary ducts: No biliary dilation. Pancreas: No ductal dilation. Spleen: Size is within normal limits. Adrenal Glands: No adrenal nodules. Stomach and Bowel: Normal colonic caliber, without significant wall thickening. There are scattered sigmoid diverticula. No evidence for diverticulitis. Peritoneum: No abnormal intraperitoneal fluid. No free air. Ventral Wall: No hernia. Abdominal Nodes: No enlarged retroperitoneal or mesenteric lymph nodes. Vessels: Aorta and inferior vena cava are normal in size. PELVIS: Pelvic Organs: Unremarkable. Pelvic Nodes: Unremarkable. Miscellaneous: No inguinal hernias are seen. Bones: Unremarkable. IMPRESSION: 1. Left ureterolithiasis, hydroureter and hydronephrosis. The 2 stones in the distal left ureter are located superior to the calculus on the comparison study dated November 19, 2023. It is unclear whether these represent the previously visualized calculus near the UVJ that have reflux superiorly in the ureter, or may represent new ureteral calculi. Of note, no stones were visualized in the left renal collecting system on the prior study favoring the reflux of the previously visualized ureteral stones. Dictated by: Nona Bello M.D. on 11/24/2023 at 10:34 MDM Narrative Medical decision making narrative: Patient is a 88-year-old female with known nephrolithiasis on the left side presenting today with increasing left pain. She is noted to be hypertensive as well but son reports that she was that way next week to. CT again confirms nephrolithiasis on the left side 2 stones each 4 mm. Difficult to say if these are the same ones versus new ones. She reports that she did get better but is quite sure that she did not pass her stones. She has no evidence SHANNAN creatinine remains 0.95 electrolytes are also stable. She has no evidence of UTI or sepsis. Her pain is much better after Toradol. Previously she reports difficult to control pain however today Toradol helped her a lot. Her blood pressure has come down nicely as her pain is controlled. Less likely to be a dissection. She has previously done well with Aurora and oxycodone. This time no need for admission for pain control. We discussed pain control at home will put her on antibiotics this is her 2nd stone this week really do not want her to get infected. Blood work and imaging have all been reviewed as above Discharge Plan Departure Patient Disposition: Home Clinical Impression: Kidney stone on left side Instructions: DI for Kidney Stones Activity Restrictions/Additional Instructions: *You have been diagnosed with kidney stone left-sided *What to do: At this time you to 4 mm stones on the left side. Hopefully you pass these unclear if this is a new stone or old stone. *Continue to take medications as directed Motrin 400 mg every 6 hours for puct-ri-acxephlx pain Aurora 1 tablet every 6 hours if needed for severe pain Zofran 4 mg every 8 hours if needed for nausea or vomiting or 30 minutes prior to [place] Continue tamsulosin as prescribed Keflex 500 mg twice a day for 7 days *Follow up with your primary care provider in 2-3 days or call [phone] *Return to ER if you should have increasing pain persistent vomiting fever or any new, worsening or concerning symptoms Prescriptions: New hydrocodone-acetaminophen 5-325 mg tablet 1 tab PO Q6H PRN (Reason: pain) Qty: 10 0RF cephalexin 500 mg capsule 500 mg PO BID 7 Days Qty: 14 0RF ondansetron 4 mg tablet,disintegrating 4 mg PO Q8H PRN (Reason: nausea and vomiting) Qty: 10 0RF ibuprofen 400 mg tablet 400 mg PO Q8H PRN (Reason: fever or pain) Qty: 20 0RF No Action triamterene-hydrochlorothiazid 37.5-25 mg capsule 1 cap PO DAILY Qty: 90 3RF (DME) Disabled Parking Permit See Rx Instructions .Route .MEDSUPPLY Qty: 1 0RF Rx Instructions: I find this patient to be medically disabled and qualified for disabled parking as indicated, and signed, on the accompanying application. levothyroxine 88 mcg tablet 88 mcg PO DAILY Qty: 90 0RF Referrals: Patricia Palmer DO [Primary Care Provider] - Stand Alone Forms: Patient Portal/API
[2023-11-24 09:49] LABS: Ictotest Urine Negative (Negative)
[2023-11-24 09:52] LABS: Amorphous Sediment Urine 1+; Bacteria Urine Occasional (0-1); RBC Urine 1-5/HPF (0-5/HPF); Squamous Epithelial Cell Urine None Seen (0-5/HPF); Urine Volume 10mL (spun); WBC Urine 5-10/HPF (0-5/HPF)
[2023-11-24] MEDS: ONDANSETRON 4 MG/2 ML INJ IV (09:55)
[2023-11-24] MEDS: KETOROLAC 30 MG/ML VIAL 15 MG IV (09:55)
[2023-11-24 10:07] LABS: Add Manual Diff / Slide Review NO; Basophils Absolute Auto 0 /uL (0-100); Basophils Percent Auto 0.2 % (0-2); Eosinophils Absolute Auto 0 /uL (0-450); Eosinophils Percent Auto 0.4 % (2-4); Hematocrit 39.9 % (36-46); Lymphocytes Absolute Auto 600 /uL (1100-4500); Lymphocytes Percent Auto 6.8 % (25-40); Mean Corpuscular HGB Conc 32.7 % (30-36); Mean Corpuscular Hemoglobin 31.3 PG (26-34); Mean Corpuscular Volume 95.9 fL (80-100); Monocytes Absolute Auto 400 /uL (0-900); Monocytes Percent Auto 4.4 % (3-14); Neutrophils Absolute Auto 8000 /uL (1500-7000); Neutrophils Percent Auto 88.2 % (50-75); Platelet Count 284 X10^3/uL (150-400); Red Blood Cell Count 4.15 X10^6/uL (4.0-5.2); Red Cell Distribution Width 14.7 % (11.6-14.8); White Blood Cell Count 9.1 X10^3/uL (4.5-11.0)
[2023-11-24 10:19] LABS: Alanine Aminotransferase 22 IU/L (<35); Albumin 4.1 g/dL (3.5-5.0); Albumin Globulin Ratio 1.4 (1.0-2.8); Alkaline Phosphatase 102 U/L (38-126); Aspartate Aminotransferase 46 IU/L (14-36); BUN Creatinine Ratio 29.5 (6-22); Bilirubin Total 1.1 mg/dL (0.2-1.3); Blood Urea Nitrogen 28 mg/dL (7-17); Calcium 8.7 mg/dL (8.4-10.2); Carbon Dioxide 25 mmol/L (22-32); Chloride 109 mmol/L (98-107); Estimated Glomerular Filt Rate 58 mL/min (>60); Glucose 138 mg/dL (80-110); Lipase 113 U/L (23-300); Potassium 4.9 mmol/L (3.4-5.1); Sodium 138 mmol/L (137-145); Total Protein 7.1 g/dL (6.3-8.2)
[2023-11-24 10:29] LABS: HEMOLYSIS 180 (0-50)
== END 2023-11-24 11:54 | disposition home or self-care (01) ==
PROVIDERS: Emergency Provider Emergency Medicine; PCP Family Medicine
DX: N20.0 Calculus of kidney (principal); I10 Essential (primary) hypertension
CPT/HCPCS: 36415; 74176; 80053; 81003; 81015; 83690; 85025; 87077; 87086; 87186; 96374; 96375; 99284; J1885; J2405

== ENCOUNTER 2023-11-26 10:48 | Emergency (ER) | payer MEDICARE, OTHER, SELFPAY ==
[2023-11-26] VITALS (25 sets, daily range): BP systolic 137–211; BP diastolic 64–91; PULSE 71–87; RESP 18; TEMP 36.4; O2SAT 95–100; BMI 24.1
--- NOTE | 2023-11-26 12:33 | ED.GENADULT ---
HPI - General Adult General Chief complaint: Urogenital-Female Stated complaint: KIDNEY STONE PAIN NAUSEA Time Seen by Provider: 11/26/23 12:30 Source: patient Mode of arrival: Ambulatory Limitations: no limitations History of Present Illness HPI narrative: 88-year-old female with history of hypothyroidism, prior breast cancer with lumpectomy, multiple prior abdominal surgeries including incarcerated hernia, hysterectomy who was seen by myself on the for kidney stone in the left and was ultimately transferred as she had intractable pain and vomiting. Patient did not have any interventions, was discharged home was seen on the was started on Keflex for potential infection and had appear to be 2 stones on her left side at that time. Patient represents today with nausea and dry heaves and increased left flank pain. She denies fevers or chills. States pain has stayed in the same location. Has intermittently been controlled but is worse at this time. She is hypertensive on arrival but was much more so on her presentation. Patient denies any issues with bowel movements. She denies any dysuria urgency or frequency. She is currently on Keflex, Zofran her last dose was 4-5 hours ago and Nescopeck tablets. She is accompanied by her family. Related Data Previous Rx's Medication Instructions Recorded triamterene 37.5 1 cap PO DAILY #90 caps 11/01/22 mg-hydrochlorothiazide 25 mg capsule Disabled Parking Permit #1 ea 05/02/23 levothyroxine 88 mcg tablet 88 mcg PO DAILY #90 tabs 10/18/23 cephalexin 500 mg capsule 500 mg PO BID 7 days #14 caps 11/24/23 hydrocodone 5 mg-acetaminophen 325 1 tab PO Q6H PRN pain #10 tabs 11/24/23 mg tablet ibuprofen 400 mg tablet 400 mg PO Q8H PRN fever or pain 11/24/23 #20 tabs ondansetron 4 mg disintegrating 4 mg PO Q8H PRN nausea and 11/24/23 tablet vomiting #10 tabs Allergies Allergy/AdvReac Type Severity Reaction Status Date / Time Penicillins Allergy Mild RASH Verified 11/26/23 10:56 Sulfa (Sulfonamide Allergy Mild RASH Verified 11/26/23 10:56 Antibiotics) codeine AdvReac Mild NAUSEA Verified 11/26/23 10:56 Review of Systems Review of Systems ROS Unobtainable: All systems reviewed & are unremarkable except as noted in HPI and below Patient History Medical History (Updated 11/26/23 @ 18:22 by Camelia Lobo DO) Polio Peroneal nerve palsy Arthritis Degenerative joint disease of knee, right Degenerative joint disease of knee, 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 Amblyopia Mitral valve prolapse Hyperlipidemia GERD (gastroesophageal reflux disease) Breast cancer (2001) Surgical History History of carpal tunnel repair (2008) Status post breast lumpectomy (2001) History of knee replacement Status post hysterectomy with oophorectomy (1986) Family History Family/Other Breast cancer Family/Other Breast cancer Social History marital status: number of children: 5 household members: other lives independently: Yes pets and animals: Yes education level: college occupational status: other Smoking Status: Never smoker alcohol intake: never substance use type: does not use Smoking Status: Never smoker Substance Use Type: does not use Exam Narrative Exam Narrative: GENERAL: Alert and oriented x three, female in moderate distress. HEENT: Head normocephalic, atraumatic, EOMI, pupils reactive, face symmetric, moist mucous membranes NECK: Supple, full range of motion CARDIOVASCULAR: Regular rate and rhythm without murmurs, rubs or gallops. RESPIRATORY: Breath sounds equal bilaterally, no wheezes rales or rhonchi. No tachypnea accessory muscle use. ABDOMEN: Soft, mild left lower quadrant Normoactive bowel sounds all 4 quadrants. No guarding or rebound, rigidity, no mass : No CVA tenderness bilaterally. EXTREMITIES: Normal range of motion, no clubbing or edema. Neurovascularly intact NEUROLOGICAL: Cranial nerves II through XII grossly intact. Moving all extremities SKIN: Warm, dry, no petechiae, no rashes or lesions. Initial Vital Signs Initial Vital Signs: Vital Signs Temperature 97.5 F L 11/26/23 10:53 Pulse Rate 87 11/26/23 10:53 Respiratory Rate 18 11/26/23 10:53 Blood Pressure 211/91 H 11/26/23 10:53 Pulse Oximetry 99 11/26/23 10:53 Oxygen Delivery Method Room Air 11/26/23 10:53 Course Orders Ordered: ED Orders 11/26/23 12:39 CT kidney ureter bladder (KUB) Stat 11/26/23 13:17 CMP [Comprehensive Metabolic Panel] Stat Lactate (Lactic Acid) Stat Procalcitonin Stat 11/26/23 13:25 CBC Auto Diff [Complete Blood Count AUTO DIFF] Stat 11/26/23 13:43 Urine Microscopic Stat 11/26/23 13:50 Blood Culture Stat Discontinued Medications Sodium Chloride (Normal Saline 0.9%) 1,000 mls @ 1,000 mls/hr IV BOLUS ONE Stop: 11/26/23 13:38 Last Infusion: 11/26/23 14:53 Dose: Infused Documented By: Admin: 11/26/23 13:18 Dose: 1,000 mls/hr Documented By: SPF Lidocaine HCl 4 ml/ Sodium (Chloride) 54 mls @ 324 mls/hr IV NOW ONE Stop: 11/26/23 14:38 Last Infusion: 11/26/23 15:10 Dose: Infused Documented By: Admin: 11/26/23 14:50 Dose: 324 mls/hr Documented By: BRANDON Levofloxacin (Levaquin) 750 mg in 150 mls @ 100 mls/hr IV NOW ONE Stop: 11/26/23 18:27 Last Admin: 11/26/23 17:40 Dose: 100 mls/hr Documented By: BRANDON Ketorolac Tromethamine (Ketorolac 30 Mg/Ml Vial) 15 mg IV NOW ONE Stop: 11/26/23 12:40 Last Admin: 11/26/23 13:18 Dose: 15 mg Documented By: BRANDON Morphine Sulfate (Morphine 4 Mg/Ml Inj) 4 mg IV NOW ONE Stop: 11/26/23 14:15 Last Admin: 11/26/23 14:23 Dose: 4 mg Documented By: ARMEN Ondansetron HCl (Ondansetron 4 Mg/2 Ml Inj) 4 mg IV NOW ONE Stop: 11/26/23 12:40 Last Admin: 11/26/23 13:18 Dose: 4 mg Documented By: BRANDON Vital Signs Vital signs: Vital Signs - 8 hr 11/26/23 12:03 11/26/23 12:03 11/26/23 12:30 Pulse Rate 82 79 Blood Pressure 188/81 H Pulse Oximetry 99 100 Oxygen Delivery Method 11/26/23 12:30 11/26/23 12:34 11/26/23 12:34 Pulse Rate 81 Blood Pressure 191/81 H 174/76 H Pulse Oximetry 100 Oxygen Delivery Method 11/26/23 13:00 11/26/23 13:40 11/26/23 13:41 Pulse Rate 84 84 Blood Pressure 188/74 H Pulse Oximetry 98 Oxygen Delivery Method 11/26/23 13:41 11/26/23 14:00 11/26/23 14:01 Pulse Rate 82 73 Blood Pressure 188/74 H Pulse Oximetry 100 Oxygen Delivery Method 11/26/23 14:01 11/26/23 14:30 11/26/23 14:30 Pulse Rate 75 77 Blood Pressure 210/85 H Pulse Oximetry 100 98 Oxygen Delivery Method Room Air 11/26/23 15:00 11/26/23 15:01 11/26/23 15:01 Pulse Rate 81 73 Blood Pressure 185/73 H Pulse Oximetry 98 99 Oxygen Delivery Method Room Air 11/26/23 15:30 11/26/23 15:30 11/26/23 16:00 Pulse Rate 77 Blood Pressure 164/72 H 139/65 Pulse Oximetry 95 Oxygen Delivery Method 11/26/23 16:00 11/26/23 16:30 11/26/23 16:30 Pulse Rate 71 72 Blood Pressure 149/68 H Pulse Oximetry 95 100 Oxygen Delivery Method Room Air Room Air 11/26/23 17:00 11/26/23 17:00 11/26/23 17:30 Pulse Rate 76 77 Blood Pressure 137/66 Pulse Oximetry 97 Oxygen Delivery Method 11/26/23 17:31 11/26/23 17:31 11/26/23 18:00 Pulse Rate 76 75 Blood Pressure 172/73 H Pulse Oximetry 98 97 Oxygen Delivery Method Room Air 11/26/23 18:01 11/26/23 18:01 11/26/23 18:30 Pulse Rate 72 Blood Pressure 161/72 H 140/64 Pulse Oximetry 98 Oxygen Delivery Method 11/26/23 18:30 11/26/23 19:00 11/26/23 19:13 Pulse Rate 79 75 Blood Pressure 160/76 H Pulse Oximetry 96 95 Oxygen Delivery Method Room Air 11/26/23 19:13 11/26/23 19:16 11/26/23 19:16 Pulse Rate 77 77 Blood Pressure 154/64 H Pulse Oximetry 98 97 Oxygen Delivery Method Room Air Medical Decision Making Lab Data 11/26/23 13:25 11/26/23 13:17 Labs: Lab Results 11/26/23 11/26/23 11/26/23 Range/Units 13:17 13:25 13:43 WBC 6.5 (4.5-11.0) X10^3/uL RBC 3.69 L (4.0-5.2) X10^6/uL Hgb 11.8 L (12.0-16.0) g/dL Hct 35.1 L (36-46) % MCV 95.1 (80-100) fL MCH 31.8 (26-34) PG MCHC 33.5 (30-36) % RDW 14.2 (11.6-14.8) % Plt Count 223 (150-400) X10^3/uL Neut % (Auto) 75.1 H (50-75) % Lymph % (Auto) 16.8 L (25-40) % [place] % (Auto) 6.4 (3-14) % Eos % (Auto) 0.7 L (2-4) % Baso % (Auto) 1.0 (0-2) % Neut # (Auto) 4900 (6990-7349) /uL Lymph # (Auto) 1100 (7166-0500) /uL [place] # (Auto) 400 (0-900) /uL Eos # (Auto) 0 (0-450) /uL Baso # (Auto) 100 (0-100) /uL Sodium 136 L (137-145) mmol/L Potassium 4.8 (3.4-5.1) mmol/L Chloride 106 (98-107) mmol/L Carbon Dioxide 27 (22-32) mmol/L BUN 24 H (7-17) mg/dL Creatinine 1.21 H (0.52-1.04) mg/dL Estimated GFR 44 L (>60) mL/min BUN/Creatinine Ratio 19.8 (6-22) Glucose 111 H (80-110) mg/dL Lactate 1.1 (0.7-2.1) mmol/L Calcium 8.5 (8.4-10.2) mg/dL Total Bilirubin 0.7 (0.2-1.3) mg/dL AST 27 (14-36) IU/L ALT 19 (<35) IU/L Alkaline Phosphatase 86 (38-126) U/L Total Protein 6.4 (6.3-8.2) g/dL Albumin 3.7 (3.5-5.0) g/dL Globulin 2.7 (1.7-4.1) g/dL Albumin/Globulin Ratio 1.4 (1.0-2.8) Procalcitonin 0.063 (<0.5) ng/mL Urine RBC 0-1/hpf (0-5/HPF) Urine WBC 0-1/hpf (0-5/HPF) Ur Squamous Epith Cells None seen (0-5/HPF) Urine Bacteria None seen (None) Hyaline Casts 0-1/lpf (None) Ur Culture Indicated? Cult not indicated Vol Urine Centrifuged 10ml (spun) Urine Dip Bedside Urine Glucose Negative Bedside Urine Bilirubin - Negative Bedside Urine Ketone +/- 5 Urine Specific [place] 1.030 Bedside Urine Occult Blood +/- Bedside Urine pH 6.0 Bedside Urine Protein - Negative Bedside Urine Urobilinogen - Negative Bedside Urine Nitrite - Negative Bedside Urine Leukocytes - Negative Esterase Point of care testing: Urine Dip Bedside Urine Glucose Negative Bedside Urine Bilirubin - Negative Bedside Urine Ketone +/- 5 Urine Specific [place] 1.030 Bedside Urine Occult Blood +/- Bedside Urine pH 6.0 Bedside Urine Protein - Negative Bedside Urine Urobilinogen - Negative Bedside Urine Nitrite - Negative Bedside Urine Leukocytes - Negative Esterase MDM Narrative Medical decision making narrative: 88-year-old female who had recent transfer for [address] imaging here, patient had intractable pain and vomiting and was unable to tolerate orals. We did not have any Urology available at that time and was transferred to [facility]. She did not have any interventions and was discharged home after several hours at [facility]. Was seen on the with persistent pain spent have possibly to kidney stones on the left ureter, was started on Keflex, she has been continuing with tamsulosin, Zofran PRN and Nescopeck. Pain has waxed and waned in intensity is worse currently she had some dry heaves today and represents. No fevers or other infectious symptoms she is little bit tender in her left lower quadrant on examination. We will repeat labs today and include lactate, procalcitonin blood cultures. Labs show white count of 6.5 hemoglobin 11.8 white count 13, platelets are 223, predominance of neutrophils but improved from 11/24/2023. Sodium is 136 potassium 4.8 chloride 106 CO2 is 27 BUN 24 with a creatinine of 1.21, has increased from 11/23 which was 0.95, glucose is 111 LFTs are negative, lactate normal 1.1 with a procalcitonin 0.063 Urine today shows no nitrates or leuks, 1 white cell 1 red cell no squamous no bacteria. Patient is currently on Keflex. CT KUB patient has a 4 mm obstructive stone left UVJ severe left hydro and moderate hydroureter with perinephric stranding and fluid no right renal stone or hydro, peripelvic cyst noted right kidney diverticulosis without diverticulitis and a grade 1 anterolisthesis on L5/S1 with moderate to severe spondylitic changes. Patient received fluids, dose of Toradol, additional dose of Zofran here in the department. Patient has continued to be nauseated but no vomiting, pain is minimally improved. With the additional dose of pain medication. Patient had morphine, minimal improvement, we will try lidocaine. She has not having any persistent vomiting. Spoke with on-call Urology for , Dr. Salas, discussed patient's findings this is her 3rd visit about 6 days slight increasing creatinine, chills but no fevers. She does have Proteus has been covered with Keflex which appears to be sensitive on her urine culture. They note that if they had her in their facility she would go ahead decompressed this patient's bladder. They asked that we call around to see if there is any closer facilities that have capability and beds. They will put her on list for transfer but notes this could take some time so asked for us to call around. Spoke with patient and family they are agreeable to the plan they would rather be closer rather than going all the way back to [facility]. Patient does feel much better after lidocaine here in the department. Spoke with urology at [facility], they are happy to see the patient likely stent or asked to keep her NPO possibly sent in the morning as patient does not appear septic at this time. They do ask that we speak with the hospitalist. Spoke with the hospitalist, Dr. Ferrara who accepts for transfer. Accepts for transfer to [facility]. Patient signed out to Dr. Carreno, while awaiting bed assignment and transfer to [facility]. Discharge Plan Departure Patient Disposition: [facility] Clinical Impression: Kidney stone on left side, SHANNAN (acute kidney injury), Acute UTI Prescriptions: No Action triamterene-hydrochlorothiazid 37.5-25 mg capsule 1 cap PO DAILY Qty: 90 3RF (DME) Disabled Parking Permit See Rx Instructions .Route .MEDSUPPLY Qty: 1 0RF Rx Instructions: I find this patient to be medically disabled and qualified for disabled parking as indicated, and signed, on the accompanying application. levothyroxine 88 mcg tablet 88 mcg PO DAILY Qty: 90 0RF hydrocodone-acetaminophen 5-325 mg tablet 1 tab PO Q6H PRN (Reason: pain) Qty: 10 0RF cephalexin 500 mg capsule 500 mg PO BID 7 Days Qty: 14 0RF ondansetron 4 mg tablet,disintegrating 4 mg PO Q8H PRN (Reason: nausea and vomiting) Qty: 10 0RF ibuprofen 400 mg tablet 400 mg PO Q8H PRN (Reason: fever or pain) Qty: 20 0RF Referrals: Jatinder Rader MD [Physician] - Patricia Palmer DO [Primary Care Provider] -
--- NOTE | 2023-11-26 12:39 | DI.CT.S_ITS ---
PROCEDURE: CT KIDNEY URETER BLADDER (KUB) INDICATIONS: known left sided stone, increased pain, vomiting. TECHNIQUE: Axial sections were acquired from the lung bases to the pubic symphysis. Coronal and sagittal reformats were performed. For radiation dose reduction, the following was used: automated exposure control, adjustment of mA and/or kV according to patient size. COMPARISON: [facility], CT, CT ABDOMEN PELVIS W CON, 11/19/2023, 0:14. [facility], CT, CT KIDNEY URETER BLADDER (KUB), 11/24/2023, 9:58. FINDINGS: Image quality: Diagnostic. Lower Chest: Bibasilar atelectasis. Small hiatal hernia. URINARY: Right Kidney and ureter: Parapelvic cyst again noted. No hydronephrosis hydroureter. No urinary stones. Left Kidney and ureter: There is a 4 mm stone at the right ureterovesical junction demonstrating CT density 472 HU. Severe left hydronephrosis and moderate hydroureter. There is perinephric stranding and small amount of perinephric fluid. No other left renal calculi. Bladder: Normal wall thickness. No stones. ABDOMEN: Liver: No contour-deforming solid mass. Gallbladder: No radiopaque gallstones or wall thickening. Biliary ducts: No biliary dilation. Pancreas: No ductal dilation. Spleen: Size is within normal limits. Adrenal Glands: No adrenal nodules. Stomach and Bowel: Normal colonic caliber, without significant wall thickening. Diverticulosis. No acute diverticulitis. Moderate amount of stool in colon. Peritoneum: No abnormal intraperitoneal fluid. No free air. Ventral Wall: No hernia. Abdominal Nodes: No enlarged retroperitoneal or mesenteric lymph nodes. Vessels: Aorta and inferior vena cava are normal in size. Moderate atherosclerotic calcifications. PELVIS: Pelvic Organs: Uterus is absent. Ovaries are not identified. No free fluid in pelvis.. Pelvic Nodes: Unremarkable. Miscellaneous: No inguinal hernias are seen. Bones: Grade 1 anterolisthesis of L5 on S1. Moderate to severe spondylitic changes in the lower thoracic spine lumbar spine. IMPRESSION: 1. A 4 mm obstructive stone at the left UVJ. There is severe left hydronephrosis and moderate hydroureter with perinephric stranding and perinephric fluid. 2. No right renal stone or hydronephrosis. Parapelvic cyst noted in right kidney. 3. Diverticulosis without acute diverticulitis. Dictated by: Yola Rajan M.D. on 11/26/2023 at 14:08 Approved by: Yola Rajan M.D. on 11/26/2023 at 14:18
[2023-11-26] MEDS: SODIUM CHLORIDE 0.9% 1,000 ML 1000 ML IV (13:18)
[2023-11-26] MEDS: KETOROLAC 30 MG/ML VIAL 15 MG IV (13:18)
[2023-11-26] MEDS: ONDANSETRON 4 MG/2 ML INJ IV (13:18)
[2023-11-26 13:34] LABS: Add Manual Diff / Slide Review NO; Basophils Absolute Auto 100 /uL (0-100); Eosinophils Absolute Auto 0 /uL (0-450); Eosinophils Percent Auto 0.7 % (2-4); Hematocrit 35.1 % (36-46); Hemoglobin 11.8 g/dL (12.0-16.0); Lymphocytes Absolute Auto 1100 /uL (1100-4500); Lymphocytes Percent Auto 16.8 % (25-40); Mean Corpuscular HGB Conc 33.5 % (30-36); Mean Corpuscular Hemoglobin 31.8 PG (26-34); Mean Corpuscular Volume 95.1 fL (80-100); Monocytes Absolute Auto 400 /uL (0-900); Monocytes Percent Auto 6.4 % (3-14); Neutrophils Absolute Auto 4900 /uL (1500-7000); Neutrophils Percent Auto 75.1 % (50-75); Platelet Count 223 X10^3/uL (150-400); Red Blood Cell Count 3.69 X10^6/uL (4.0-5.2); Red Cell Distribution Width 14.2 % (11.6-14.8); White Blood Cell Count 6.5 X10^3/uL (4.5-11.0)
[2023-11-26 13:38] LABS: Lactate (Lactic Acid) 1.1 mmol/L (0.7-2.1)
[2023-11-26 13:39] LABS: Alanine Aminotransferase 19 IU/L (<35); Albumin 3.7 g/dL (3.5-5.0); Albumin Globulin Ratio 1.4 (1.0-2.8); Alkaline Phosphatase 86 U/L (38-126); Aspartate Aminotransferase 27 IU/L (14-36); BUN Creatinine Ratio 19.8 (6-22); Bilirubin Total 0.7 mg/dL (0.2-1.3); Blood Urea Nitrogen 24 mg/dL (7-17); Calcium 8.5 mg/dL (8.4-10.2); Carbon Dioxide 27 mmol/L (22-32); Chloride 106 mmol/L (98-107); Estimated Glomerular Filt Rate 44 mL/min (>60); Globulin 2.7 g/dL (1.7-4.1); Glucose 111 mg/dL (80-110); HEMOLYSIS 15 (0-50); Potassium 4.8 mmol/L (3.4-5.1); Sodium 136 mmol/L (137-145); Total Protein 6.4 g/dL (6.3-8.2)
[2023-11-26 13:55] LABS: Procalcitonin 0.063 ng/mL (<0.5)
[2023-11-26 14:13] LABS: Bacteria Urine None Seen; Culture Indicated Urine Cult Not Indicated; Hyaline Casts Urine 0-1/LPF; RBC Urine 0-1/HPF (0-5/HPF); Squamous Epithelial Cell Urine None Seen (0-5/HPF); Urine Volume 10mL (spun); WBC Urine 0-1/HPF (0-5/HPF)
[2023-11-26] MEDS: MORPHINE 4 MG/ML INJ IV (14:23)
[2023-11-26] MEDS: SODIUM CHLORIDE 0.9% IV (14:50)
[2023-11-26] MEDS: LIDOCAINE 2% IV (14:50)
[2023-11-26] MEDS: levoFLOXacin 750 MG/150 ML PIGGYBACK 100 MG IV (17:40)
== END 2023-11-26 20:13 | disposition short-term general hospital (02) ==
PROVIDERS: Emergency Provider Emergency Medicine; PCP Family Medicine
DX: N20.0 Calculus of kidney (principal); N17.9 Acute kidney failure, unspecified; N39.0 Urinary tract infection, site not specified
CPT/HCPCS: 36415; 74176; 80053; 81003; 81015; 83605; 84145; 85025; 87040; 96361; 96365; 96366; 96367; 96375; 99284; J1885; J1956; J2270; J2405

== ENCOUNTER → 2023-12-21 11:32 | Outpatient (CLI) | payer MEDICARE, OTHER, SELFPAY ==
[2023-12-21 13:07] LABS: TSH w/ Reflex to FT4 3.91 uIU/mL (0.47-4.68)
== END ==
PROVIDERS: PCP Family Medicine; Referring Provider Family Medicine; Visit Provider Family Medicine
DX: E03.9 Hypothyroidism, unspecified (principal)
CPT/HCPCS: 36415; 84443

== ENCOUNTER → 2024-01-23 15:23 | Outpatient (CLI) | payer MEDICARE, OTHER, SELFPAY ==
--- NOTE | 2024-01-23 15:25 | DI.RAD.S_ITS ---
PROCEDURE: XR CALCANEOUS RT MIN 2V INDICATIONS: medial calcaneal pain, rule out bone spur TECHNIQUE: Two views of the calcaneus were acquired. COMPARISON: None. FINDINGS: Bones: No fractures or dislocations. No suspicious bony lesions. Soft tissues: No suspicious calcifications. Achilles tendon appears normal. IMPRESSION: No identified osteophyte. Dictated by: Audrey Sherman M.D. on 01/23/2024 at 16:40 Approved by: Audrey Sherman M.D. on 01/23/2024 at 16:40
[2024-01-23 17:46] LABS: BUN Creatinine Ratio 27.9 (6-22); Blood Urea Nitrogen 24 mg/dL (7-17); Calcium 8.8 mg/dL (8.4-10.2); Carbon Dioxide 28 mmol/L (22-32); Chloride 108 mmol/L (98-107); Estimated Glomerular Filt Rate > 60 mL/min (>60); Glucose 101 mg/dL (80-110); HEMOLYSIS < 15 (0-50); Sodium 138 mmol/L (137-145)
== END ==
LOC: LAB 15:24
PROVIDERS: PCP Family Medicine; Referring Provider Family Medicine; Visit Provider Family Medicine
DX: N17.9 Acute kidney failure, unspecified (principal)
CPT/HCPCS: 73650; 80048

== ENCOUNTER 2024-09-16 07:24 | Emergency (ER) | payer MEDICARE, OTHER, SELFPAY ==
[2024-09-16] VITALS (9 sets, daily range): BP systolic 160–184; BP diastolic 74–89; PULSE 79–109; RESP 16; TEMP 36.9–37.2; O2SAT 93–99; BMI 23.1
[2024-09-16 08:06] LABS: Add Manual Diff / Slide Review NO; Basophils Absolute Auto 0 /uL (0-100); Basophils Percent Auto 0.6 % (0-2); Eosinophils Absolute Auto 0 /uL (0-450); Eosinophils Percent Auto 0.1 % (2-4); Hemoglobin 12.6 g/dL (12.0-16.0); Lymphocytes Absolute Auto 200 /uL (1100-4500); Lymphocytes Percent Auto 5.9 % (25-40); Mean Corpuscular HGB Conc 34.2 % (30-36); Mean Corpuscular Hemoglobin 32.1 PG (26-34); Monocytes Absolute Auto 200 /uL (0-900); Monocytes Percent Auto 6.7 % (3-14); Neutrophils Absolute Auto 3100 /uL (1500-7000); Neutrophils Percent Auto 86.7 % (50-75); Platelet Count 144 X10^3/uL (150-400); Red Blood Cell Count 3.93 X10^6/uL (4.0-5.2); Red Cell Distribution Width 14.3 % (11.6-14.8); White Blood Cell Count 3.6 X10^3/uL (4.5-11.0)
[2024-09-16] MEDS: ONDANSETRON 4 MG/2 ML INJ IV (08:06)
[2024-09-16 08:18] LABS: Alanine Aminotransferase 25 IU/L (<35); Albumin 3.5 g/dL (3.5-5.0); Albumin Globulin Ratio 1.3 (1.0-2.8); Alkaline Phosphatase 77 U/L (38-126); Aspartate Aminotransferase 41 IU/L (14-36); Bilirubin Total 0.6 mg/dL (0.2-1.3); Blood Urea Nitrogen 17 mg/dL (7-17); Calcium 8.5 mg/dL (8.4-10.2); Carbon Dioxide 24 mmol/L (22-32); Chloride 104 mmol/L (98-107); Estimated Glomerular Filt Rate > 60 mL/min (>60); Globulin 2.7 g/dL (1.7-4.1); Glucose 121 mg/dL (80-110); HEMOLYSIS < 15 (0-50); Potassium 3.9 mmol/L (3.4-5.1); Sodium 136 mmol/L (137-145); Total Protein 6.2 g/dL (6.3-8.2)
--- NOTE | 2024-09-16 08:24 | ED_ITS ---
HPI - Abdominal Pain General Chief Complaint: Urogenital-Female Stated Complaint: Kidney pain Time Seen by Provider: 09/16/24 07:47 Source: patient Mode of arrival: Family Vehicle History of Present Illness HPI narrative: Patient 89-year-old female history of hypothyroid, prior kidney stones multiple abdominal surgeries presents today with bilateral back pain. She reports it has been ongoing for the last 2 days. She reports it is in her kidney she has some nausea. Not going around to her abdomen sometimes going down to her legs. No chest pain no shortness of breath. She denies any fever. She has been taking Tylenol and Advil at home. No painful frequent urination. Recently diagnosed with COVID and took Paxlovid. Related Data Previous Rx's Medication Instructions Recorded Disabled Parking Permit #1 ea 05/02/23 levothyroxine 88 mcg tablet 88 mcg PO DAILY #90 tabs 01/23/24 nirmatrelvir 300 mg (150 mg See Rx Instructions PO .COMPLEX 09/11/24 x2)-ritonavir 100 mg tablet,dose #30 ea pack (Paxlovid) hydrocodone 5 mg-acetaminophen 325 1 tab PO Q6H PRN pain #10 tabs 09/16/24 mg tablet Allergies Allergy/AdvReac Type Severity Reaction Status Date / Time Penicillins Allergy Mild RASH Verified 09/16/24 07:46 Sulfa (Sulfonamide Allergy Mild RASH Verified 09/16/24 07:46 Antibiotics) codeine AdvReac Mild NAUSEA Verified 09/16/24 07:46 Patient History Medical History (Updated 09/16/24 @ 10:13 by Martina Dunaway DO) Polio Peroneal nerve palsy Arthritis Degenerative joint disease of knee, right Degenerative joint disease of knee, 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 Amblyopia Mitral valve prolapse Hyperlipidemia GERD (gastroesophageal reflux disease) Breast cancer (2001) Surgical History History of carpal tunnel repair (2008) Status post breast lumpectomy (2001) History of knee replacement Status post hysterectomy with oophorectomy (1986) Family History Family/Other Breast cancer Family/Other Breast cancer Social History marital status: number of children: 5 household members: other lives independently: Yes pets and animals: Yes education level: college occupational status: other Smoking Status: Never smoker alcohol intake: never substance use type: does not use Smoking Status: Never smoker Exam Initial Vital Signs Initial Vital Signs: Vital Signs Temperature 98.9 F 09/16/24 07:30 Pulse Rate 109 H 09/16/24 07:30 Respiratory Rate 16 09/16/24 07:30 Blood Pressure 184/84 H 09/16/24 07:30 Pulse Oximetry 99 09/16/24 07:30 Oxygen Delivery Method Room Air 09/16/24 07:30 GENERAL: Alert 89-year-old female appears uncomfortable and in [no acute] distress. HEENT: Head atraumatic,EOMI, pupils reactive, face symmetric, [moist] mucous membranes CARDIOVASCULAR: Regular rate and rhythm without murmurs, rubs or gallops. RESPIRATORY: Breath sounds equal bilaterally, no wheezes rales or rhonchi. ABDOMEN: Soft, nontender. Normoactive bowel sounds all 4 quadrants. No guarding or rebound. : Mild bilateral CVA tenderness EXTREMITIES: Normal range of motion, no clubbing or edema. Neurovascularly intact NEUROLOGICAL: Alert and oriented x4.Normal gait and speech. Cranial nerves II through XII grossly intact. SKIN: Warm, dry, no laceration, no petechiae, no rashes or lesions. Course Orders Ordered: ED Orders 09/16/24 07:57 CBC Auto Diff [Complete Blood Count AUTO DIFF] Stat CMP [Comprehensive Metabolic Panel] Stat Lipase Stat 09/16/24 08:29 CT abdomen pelvis w con Stat 09/16/24 08:52 Urine Microscopic Stat Discontinued Medications Ketorolac Tromethamine (Ketorolac 30 Mg/Ml Vial) 15 mg IV NOW ONE Stop: 09/16/24 08:30 Last Admin: 09/16/24 08:40 Dose: 15 mg Documented By: VOLODYMYR Ondansetron HCl (Ondansetron 4 Mg/2 Ml Inj) 4 mg IV NOW PRN PRN Reason: Nausea And Vomiting Last Admin: 09/16/24 08:06 Dose: 4 mg Documented By: VOLODYMYR Ondansetron HCl (Ondansetron 4 Mg Odt) 4 mg SL NOW PRN PRN Reason: Nausea And Vomiting Vital Signs Vital signs: Vital Signs - 8 hr 09/16/24 07:30 09/16/24 07:36 09/16/24 08:00 Temperature 98.9 F Pulse Rate 109 H 106 H 106 H Respiratory Rate 16 Blood Pressure 184/84 H Pulse Oximetry 99 95 94 Oxygen Delivery Method Room Air 09/16/24 08:00 09/16/24 08:30 09/16/24 08:30 Temperature Pulse Rate 96 H Respiratory Rate Blood Pressure 168/89 H 177/81 H Pulse Oximetry 94 Oxygen Delivery Method 09/16/24 08:51 09/16/24 08:51 09/16/24 09:00 Temperature Pulse Rate 89 Respiratory Rate Blood Pressure 160/87 H 163/77 H Pulse Oximetry 98 Oxygen Delivery Method 09/16/24 09:00 09/16/24 09:30 09/16/24 09:30 Temperature Pulse Rate 88 83 Respiratory Rate Blood Pressure 166/74 H Pulse Oximetry 93 93 Oxygen Delivery Method 09/16/24 10:01 09/16/24 10:22 Temperature 98.4 F Pulse Rate 79 Respiratory Rate Blood Pressure Pulse Oximetry 94 Oxygen Delivery Method MDM - Abdominal Pain Lab Data 09/16/24 07:57 09/16/24 07:57 Labs: Lab Results 09/16/24 09/16/24 Range/Units 07:57 08:52 WBC 3.6 L (4.5-11.0) X10^3/uL RBC 3.93 L (4.0-5.2) X10^6/uL Hgb 12.6 (12.0-16.0) g/dL Hct 37.0 (36-46) % MCV 94.0 (80-100) fL MCH 32.1 (26-34) PG MCHC 34.2 (30-36) % RDW 14.3 (11.6-14.8) % Plt Count 144 L (150-400) X10^3/uL Neut % (Auto) 86.7 H (50-75) % Lymph % (Auto) 5.9 L (25-40) % [place] % (Auto) 6.7 (3-14) % Eos % (Auto) 0.1 L (2-4) % Baso % (Auto) 0.6 (0-2) % Neut # (Auto) 3100 (7788-0654) /uL Lymph # (Auto) 200 L (7290-6443) /uL [place] # (Auto) 200 (0-900) /uL Eos # (Auto) 0 (0-450) /uL Baso # (Auto) 0 (0-100) /uL Sodium 136 L (137-145) mmol/L Potassium 3.9 (3.4-5.1) mmol/L Chloride 104 (98-107) mmol/L Carbon Dioxide 24 (22-32) mmol/L BUN 17 (7-17) mg/dL Creatinine 0.63 (0.52-1.04) mg/dL Estimated GFR > 60 (>60) mL/min BUN/Creatinine Ratio 27.0 H (6-22) Glucose 121 H (80-110) mg/dL Calcium 8.5 (8.4-10.2) mg/dL Total Bilirubin 0.6 (0.2-1.3) mg/dL AST 41 H (14-36) IU/L ALT 25 (<35) IU/L Alkaline Phosphatase 77 (38-126) U/L Total Protein 6.2 L (6.3-8.2) g/dL Albumin 3.5 (3.5-5.0) g/dL Globulin 2.7 (1.7-4.1) g/dL Albumin/Globulin Ratio 1.3 (1.0-2.8) Lipase 63 (23-300) U/L Urine RBC 0-1/hpf (0-5/HPF) Urine WBC None seen (0-5/HPF) Ur Squamous Epith Cells None seen (0-5/HPF) Urine Bacteria None seen (None) Ur Culture Indicated? Cult not indicated Vol Urine Centrifuged 10ml (spun) Point of care testing: Urine Dip Bedside Urine Glucose Negative Bedside Urine Bilirubin - Negative Bedside Urine Ketone + 15 Urine Specific [place] 1.010 Bedside Urine Occult Blood +/- Bedside Urine pH 6.0 Bedside Urine Protein +/- 15 Bedside Urine Urobilinogen - Negative Bedside Urine Nitrite - Negative Bedside Urine Leukocytes - Negative Esterase Imaging Data CT scan - abdomen/pelvis: Radiologist's Impression: PROCEDURE: CT ABDOMEN PELVIS W CON INDICATIONS: right flank pain TECHNIQUE: After the administration of intravenous contrast, axial sections acquired from the lung bases to the pubic symphysis. Coronal and sagittal reformats were performed. For radiation dose reduction, the following was used: automated exposure control, adjustment of mA and/or kV according to patient size. COMPARISON: [facility], CT, CT ABDOMEN PELVIS W CON, 11/19/2023, 0:14. FINDINGS: Image quality: Diagnostic. Lower Chest: Mild peripheral ground-glass opacities in the lungs. ABDOMEN: Liver: No solid mass. Gallbladder: No radiopaque gallstones or wall thickening. Biliary ducts: No biliary dilation. Pancreas: No ductal dilation. Stable 2.2 centimeter cystic lesion in the pancreatic neck. Spleen: Size is within normal limits. Adrenal Glands: No adrenal nodules. Kidneys and Ureters: Right-sided hydronephrosis. No solid mass. No complex renal cystic lesion which requires follow up. Right-sided urothelial thickening. Additionally, there is layering debris within the renal pelvises. Left-sided renal sinus cysts. Stomach and Bowel: Normal colonic caliber, without significant wall thickening. Colonic diverticulosis without evidence of diverticulitis. Peritoneum: No abnormal intraperitoneal fluid. No free air. Ventral Wall: No significant ventral hernia. Abdominal Nodes: No retroperitoneal or mesenteric adenopathy by size criteria. Vessels: Aorta and inferior vena cava are normal in size. PELVIS: Pelvic Organs: Unremarkable. Bladder: No bladder wall thickening, accounting for underdistention. Pelvic Nodes: No enlarged lymph nodes. Miscellaneous: No inguinal hernias are seen. Bones: No aggressive osseous abnormality. Degenerative disc disease of the lumbar spine. Grade 1 anterolisthesis of L5 on S1 due to facet arthrosis. IMPRESSION: Mild right-sided hydronephrosis without nephrolithiasis. Findings could be due to ascending urinary tract infection. Layering debris within the bilateral renal pelvis. Findings may indicate blood products. Correlate with urinalysis. Further evaluation with outpatient CT IVP should be considered to exclude underlying lesions. Mild ground-glass opacities in the lung, most consistent with atypical/viral pneumonia. Stable 2.2 centimeter pancreatic cystic lesion in the neck. Recommend nonemergent MRI with contrast (pancreatic mass protocol) for complete characterization, if not performed in the past. Dictated by: Jassi Hidalgo M.D. on 09/16/2024 at 8:53 MDM Narrative Medical decision making narrative: MDM CC: Back pain Complicating co-morbidities: Prior kidney stone with stents Medical records reviewed: Previous ED records Differential considered: Arthritis nephrolithiasis, dissection Exam documented above, pertinent findings include: Pleasant 89-year-old female bilateral flank pain slightly in lower lumbar region no vertebral tenderness abdomen soft nontender Lab Test results independently reviewed as above. Pertinent findings: WBC 3.6 no anemia Electrolytes stable creatinine 0.63 Bilirubin liver enzymes within normal limits Urinalysis negative for UTI Independently reviewed EKG as above none Imaging studies independently reviewed: CT shows right hydroureter no nephrolithiasis no appendicitis diverticulitis or cause for abdominal pain Consultations: none Treatments: Toradol Re-evaluations: Patient is feeling better after Toradol Discussion: Patient 89-year-old female presenting today with bilateral back pain it does radiate to her legs at times. She has no evidence of infection labs are overall reassuring mild leukopenia with a WBC of 3.6 but no obvious infection. CT does not show any evidence of nephrolithiasis, was does not with contrast no other abnormality except for some right hydronephrosis. Suspect her pain is probably musculoskeletal. Low suspicion for dissection. Overall feeling much better after Toradol. We will give her some Champion which she thinks she has had in the past for further pain control at home Discharge Plan Departure Patient Disposition: Home Clinical Impression: Back pain Instructions: Low Back Pain Activity Restrictions/Additional Instructions: *You have been diagnosed with back pain *What to do: At this time there is no evidence of infection or kidney stone. I recommend light activity. Try heating pad may try ice as well *Continue to take medications as directed Advil 400 mg every 6-8 hours if needed for pain Champion 1 tablet or half a tablet every 6 hours if needed for severe *Follow up with your primary care provider in 2-3 days or call [phone] *Return to ER if you should have increasing pain numbness tingling weakness persistent vomiting fever or any new, worsening or concerning symptoms CONTROLLED SUBSTANCE DISCHARGE (Narcotoic/benzodiazepine/Flexeril/Phenergan) 1. You have been prescribed narcotic medications, it does have acetaminophen/Tylenol/paracetamol in it, DO NOT TAKE MORE THAN 4,00mg in 24 hours of Tylenol. TRAMADOL DOES NOT CONTAIN TYLENOL 2. Please understand that we cannot provide further refills of narcotics, benzodiazepines or controlled substances through the ED and her pain management will need to be through your provider. 3. While on these medications you cannot drive or operate heavy machinery. 4. You cannot sign legal documents or perform any duties such as this. 5. As long as you're taking opiate pain medications he should also be taking a stool softener such as Colace, Dulcolax, MiraLAX or prune juice, to help avoid constipation. Prescriptions: New hydrocodone-acetaminophen 5-325 mg tablet 1 tab PO Q6H PRN (Reason: pain) Qty: 10 0RF No Action (DME) Disabled Parking Permit See Rx Instructions .Route .MEDSUPPLY Qty: 1 0RF Rx Instructions: I find this patient to be medically disabled and qualified for disabled parking as indicated, and signed, on the accompanying application. Paxlovid 300 mg (150 mg x 2)-100 mg tablets,dose pack See Rx Instructions PO .COMPLEX Qty: 30 0RF Rx Instructions: take TWO 150 mg tablets of nirmatrelvir with ONE 100 mg tablet of ritonavir twice daily for 5 days PO levothyroxine 88 mcg tablet 88 mcg PO DAILY Qty: 90 3RF Referrals: Patricia Palmer DO [Primary Care Provider] - Stand Alone Forms: Patient Portal/API/Survey
--- NOTE | 2024-09-16 08:29 | DI.CT.S_ITS ---
PROCEDURE: CT ABDOMEN PELVIS W CON INDICATIONS: right flank pain TECHNIQUE: After the administration of intravenous contrast, axial sections acquired from the lung bases to the pubic symphysis. Coronal and sagittal reformats were performed. For radiation dose reduction, the following was used: automated exposure control, adjustment of mA and/or kV according to patient size. COMPARISON: [facility], CT, CT ABDOMEN PELVIS W CON, 11/19/2023, 0:14. FINDINGS: Image quality: Diagnostic. Lower Chest: Mild peripheral ground-glass opacities in the lungs. ABDOMEN: Liver: No solid mass. Gallbladder: No radiopaque gallstones or wall thickening. Biliary ducts: No biliary dilation. Pancreas: No ductal dilation. Stable 2.2 centimeter cystic lesion in the pancreatic neck. Spleen: Size is within normal limits. Adrenal Glands: No adrenal nodules. Kidneys and Ureters: Right-sided hydronephrosis. No solid mass. No complex renal cystic lesion which requires follow up. Right-sided urothelial thickening. Additionally, there is layering debris within the renal pelvises. Left-sided renal sinus cysts. Stomach and Bowel: Normal colonic caliber, without significant wall thickening. Colonic diverticulosis without evidence of diverticulitis. Peritoneum: No abnormal intraperitoneal fluid. No free air. Ventral Wall: No significant ventral hernia. Abdominal Nodes: No retroperitoneal or mesenteric adenopathy by size criteria. Vessels: Aorta and inferior vena cava are normal in size. PELVIS: Pelvic Organs: Unremarkable. Bladder: No bladder wall thickening, accounting for underdistention. Pelvic Nodes: No enlarged lymph nodes. Miscellaneous: No inguinal hernias are seen. Bones: No aggressive osseous abnormality. Degenerative disc disease of the lumbar spine. Grade 1 anterolisthesis of L5 on S1 due to facet arthrosis. IMPRESSION: Mild right-sided hydronephrosis without nephrolithiasis. Findings could be due to ascending urinary tract infection. Layering debris within the bilateral renal pelvis. Findings may indicate blood products. Correlate with urinalysis. Further evaluation with outpatient CT IVP should be considered to exclude underlying lesions. Mild ground-glass opacities in the lung, most consistent with atypical/viral pneumonia. Stable 2.2 centimeter pancreatic cystic lesion in the neck. Recommend nonemergent MRI with contrast (pancreatic mass protocol) for complete characterization, if not performed in the past. Dictated by: Jassi Hidalgo M.D. on 09/16/2024 at 8:53 Approved by: Jassi Hidalgo M.D. on 09/16/2024 at 8:58
[2024-09-16] MEDS: KETOROLAC 30 MG/ML VIAL 15 MG IV (08:40)
[2024-09-16 08:43] LABS: Lipase 63 U/L (23-300)
[2024-09-16 09:13] LABS: Urine Volume 10mL (spun)
[2024-09-16 09:16] LABS: Bacteria Urine None Seen; Culture Indicated Urine Cult Not Indicated; RBC Urine 0-1/HPF (0-5/HPF); Squamous Epithelial Cell Urine None Seen (0-5/HPF); WBC Urine None Seen (0-5/HPF)
== END 2024-09-16 10:30 | disposition home or self-care (01) ==
PROVIDERS: Emergency Provider Emergency Medicine; PCP Family Medicine
DX: M54.89 Other dorsalgia (principal); N13.30 Unspecified hydronephrosis; Z87.442 Personal history of urinary calculi
CPT/HCPCS: 36415; 74177; 80053; 81003; 81015; 83690; 85025; 96374; 96375; 99284; J1885; J2405; Q9967

== ENCOUNTER 2024-09-18 11:41 | Emergency (ER) | payer MEDICARE, OTHER, SELFPAY ==
[2024-09-18] VITALS (8 sets, daily range): BP systolic 139–186; BP diastolic 70–86; PULSE 89–100; RESP 15–28; TEMP 36.9–38.2; O2SAT 93–99; BMI 49.6
--- NOTE | 2024-09-18 11:42 | EKG_ITS ---
[id number] [place] [address] Test Date: 2024-09-18 Pat Name: Kelsey Robles Department: Room: Gender: Female [facility] Chemist: SUNDAR : 1935 Requested By: Order Number: [id number] Reading MD: Dutch Grubbs MD Measurements Intervals [place] Rate: 98 P: 65 [place]: 158 QRS: -35 QRSD: 72 T: 21 QT: 344 QTc: 439 Interpretive Statements Sinus rhythm with marked sinus arrhythmia with premature atrial complexes with aberrant conduction Left axis deviation Minimal voltage criteria for LVH, may be normal variant ( R in aVL ) Nonspecific ST abnormality Electronically Signed On 09-19-2024 7:39:49 PDT by Dutch Grubbs MD
--- NOTE | 2024-09-18 11:48 | DI.RAD.S_ITS ---
PROCEDURE: XR CHEST 1V INDICATIONS: chest pain TECHNIQUE: One view of the chest was acquired. COMPARISON: None. FINDINGS: Surgical changes and devices: Right axillary lymph node dissection. Lungs and pleura: Lungs are clear. No pleural effusions or pneumothorax. Mediastinum: Mediastinal contours appear normal. Heart size is normal. Bones and chest wall: No suspicious bony lesions. Overlying soft tissues appear unremarkable. IMPRESSION: No acute cardiopulmonary abnormality is seen. Dictated by: Jassi Hidalgo M.D. on 09/18/2024 at 12:25 Approved by: Jassi Hidalgo M.D. on 09/18/2024 at 12:26
--- NOTE | 2024-09-18 12:23 | PC.NURSE ---
Reportedly otherwise healthy 89 y/o with a recent history of covid infection 2 weeks ago with a cough. She's had nausea starting two weeks ago and is having a hard time taking PO fluids without nausea. She went to the doctor a few days ago and given paxlovid. For about 3-4 days she been having chest pain associated with her cough that is mid sternal through to her back. She says it hurts to take a deep breathe. She is producing a scant amount of sputum. RT in room to eval and treat/ consult. Patient 02 saturation [facility]
[2024-09-18 12:37] LABS: Add Manual Diff / Slide Review NO; Basophils Absolute Auto 0 /uL (0-100); Basophils Percent Auto 0.7 % (0-2); Eosinophils Absolute Auto 0 /uL (0-450); Eosinophils Percent Auto 0.1 % (2-4); Hematocrit 39.5 % (36-46); Hemoglobin 12.9 g/dL (12.0-16.0); Lymphocytes Absolute Auto 400 /uL (1100-4500); Lymphocytes Percent Auto 9.8 % (25-40); Mean Corpuscular HGB Conc 32.7 % (30-36); Mean Corpuscular Hemoglobin 31.2 PG (26-34); Mean Corpuscular Volume 95.5 fL (80-100); Monocytes Absolute Auto 200 /uL (0-900); Monocytes Percent Auto 4.8 % (3-14); Neutrophils Absolute Auto 3400 /uL (1500-7000); Neutrophils Percent Auto 84.6 % (50-75); Platelet Count 144 X10^3/uL (150-400); Red Blood Cell Count 4.14 X10^6/uL (4.0-5.2); Red Cell Distribution Width 14.5 % (11.6-14.8); White Blood Cell Count 4.1 X10^3/uL (4.5-11.0)
[2024-09-18 12:44] LABS: INR 1.1 (0.9-1.3); Prothrombin Time 11.9 SECONDS (9.4-12.5)
[2024-09-18 12:47] LABS: PTT Partial Thromboplastin Tim 29 SECONDS (25.1-36.5)
[2024-09-18 12:49] LABS: Alanine Aminotransferase 41 IU/L (<35); Albumin 3.4 g/dL (3.5-5.0); Albumin Globulin Ratio 1.3 (1.0-2.8); Alkaline Phosphatase 81 U/L (38-126); Aspartate Aminotransferase 73 IU/L (14-36); BUN Creatinine Ratio 26.9 (6-22); Bilirubin Total 0.6 mg/dL (0.2-1.3); Blood Urea Nitrogen 18 mg/dL (7-17); Calcium 8.2 mg/dL (8.4-10.2); Carbon Dioxide 23 mmol/L (22-32); Chloride 102 mmol/L (98-107); Creatine Kinase 54 U/L (30-135); Estimated Glomerular Filt Rate > 60 mL/min (>60); Globulin 2.7 g/dL (1.7-4.1); Glucose 91 mg/dL (80-110); HEMOLYSIS < 15 (0-50); Lipase 62 U/L (23-300); Magnesium 1.7 mg/dL (1.6-2.3); Sodium 133 mmol/L (137-145); Total Protein 6.1 g/dL (6.3-8.2)
--- NOTE | 2024-09-18 12:53 | ED.CHESTPAIN ---
HPI - Chest Pain General Chief Complaint: Chest Pain Stated Complaint: Chest pain Time Seen by Provider: 09/18/24 11:49 Source: patient Mode of arrival: Family Vehicle Limitations: no limitations History of Present Illness HPI narrative: 89-year-old woman with a history of multiple abdominal surgeries, prior kidney stones, hypothyroidism, positive for COVID on September 11 and did take course of Paxlovid, seen in the emergency department on the with complaints of back pain that did improve with Toradol. Comes in today complaining of continued mid to lower back pain. She has been using ibuprofen, Tylenol and oxycodone at home. When she does use these pain is controlled however she she feels that the half of the oxycodone ?sensor for a loop? in his wondering if she can have something less strong. She notes that Tylenol and ibuprofen alone are not effective Related Data Previous Rx's Medication Instructions Recorded Disabled Parking Permit #1 ea 05/02/23 levothyroxine 88 mcg tablet 88 mcg PO DAILY #90 tabs 01/23/24 nirmatrelvir 300 mg (150 mg See Rx Instructions PO .COMPLEX 09/11/24 x2)-ritonavir 100 mg tablet,dose #30 ea pack (Paxlovid) hydrocodone 5 mg-acetaminophen 325 1 tab PO Q6H PRN pain #10 tabs 09/16/24 mg tablet tramadol 25 mg tablet 25 mg PO Q6H PRN pain #14 tabs 09/18/24 Allergies Allergy/AdvReac Type Severity Reaction Status Date / Time Penicillins Allergy Mild RASH Verified 09/16/24 07:46 Sulfa (Sulfonamide Allergy Mild RASH Verified 09/16/24 07:46 Antibiotics) codeine AdvReac Mild NAUSEA Verified 09/16/24 07:46 Review of Systems Review of Systems Narrative: Pertinent positive and negative findings as per HPI Patient History Medical History (Updated 09/18/24 @ 14:21 by Tequila Farias MD) Polio Peroneal nerve palsy Arthritis Degenerative joint disease of knee, right Degenerative joint disease of knee, 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 Amblyopia Mitral valve prolapse Hyperlipidemia GERD (gastroesophageal reflux disease) Breast cancer (2001) Surgical History History of carpal tunnel repair (2008) Status post breast lumpectomy (2001) History of knee replacement Status post hysterectomy with oophorectomy (1986) Family History Family/Other Breast cancer Family/Other Breast cancer Social History marital status: number of children: 5 household members: other lives independently: Yes pets and animals: Yes education level: college occupational status: other Smoking Status: Never smoker alcohol intake: never substance use type: does not use Smoking Status: Never smoker Exam Initial Vital Signs Initial Vital Signs: Vital Signs Temperature 100.7 F H 09/18/24 11:49 Pulse Rate 89 09/18/24 11:49 Respiratory Rate 17 09/18/24 11:49 Blood Pressure 184/86 H 09/18/24 11:49 Pulse Oximetry 99 09/18/24 11:49 Oxygen Delivery Method Room Air 09/18/24 11:49 General: Alert appropriate in no acute distress Respiratory: Able to speak in full sentences, no obvious respiratory distress Spine: Tenderness seems to be worse the left lower lung field approximately T8-T10 without point tenderness or obvious skin changes Abdomen: Soft, nontender no rebound or guarding Skin: No obvious rashes, warm and dry Neurologic: Grossly intact no obvious asymmetries or abnormalities Psych: appropriate insight and affect, cooperative Course Orders Ordered: ED Orders 09/18/24 11:42 EKG-12 Lead Stat 09/18/24 11:48 XR chest 1V Stat EKG-12 Lead Stat 09/18/24 12:25 Blood Culture Stat Complete Blood Count AUTO DIFF Stat Comprehensive Metabolic Panel Stat D Dimer Stat Lipase Stat Lipase Stat Magnesium Stat NT-proBNP (BNP-Adult 18+) Stat PTT Partial Thromboplastin David Stat Prothrombin Time INR Stat Troponin & CK Cardiac Panel Stat 09/18/24 13:05 XR thoracic spine 2V Stat Discontinued Medications Aspirin (Aspirin 81 Mg Chew Tab) 324 mg PO NOW ONE Stop: 09/18/24 11:49 Last Admin: 09/18/24 12:38 Dose: Not Given Documented By: RLS Ketorolac Tromethamine (Ketorolac 30 Mg/Ml Vial) 15 mg IV NOW ONE Stop: 09/18/24 13:14 Last Admin: 09/18/24 13:43 Dose: 15 mg Documented By: SB Vital Signs Vital signs: Vital Signs - 8 hr 09/18/24 11:49 09/18/24 11:49 09/18/24 11:56 Temperature 100.7 F H Pulse Rate 89 99 H Respiratory Rate 17 Blood Pressure 184/86 H 184/86 H Pulse Oximetry 99 94 Oxygen Delivery Method Room Air 09/18/24 11:56 09/18/24 12:00 09/18/24 12:00 Temperature Pulse Rate 100 H 96 H Respiratory Rate 15 24 Blood Pressure 166/82 H Pulse Oximetry 94 93 Oxygen Delivery Method 09/18/24 13:00 09/18/24 13:00 Temperature Pulse Rate 93 H Respiratory Rate 23 Blood Pressure 186/86 H Pulse Oximetry 96 Oxygen Delivery Method Room Air MDM - Chest Pain Lab Data 09/18/24 12:25 09/18/24 12:25 Labs: Lab Results 09/18/24 09/18/24 Range/Units 12:25 12:25 WBC 4.1 L (4.5-11.0) X10^3/uL RBC 4.14 (4.0-5.2) X10^6/uL Hgb 12.9 (12.0-16.0) g/dL Hct 39.5 (36-46) % MCV 95.5 (80-100) fL MCH 31.2 (26-34) PG MCHC 32.7 (30-36) % RDW 14.5 (11.6-14.8) % Plt Count 144 L (150-400) X10^3/uL Neut % (Auto) 84.6 H (50-75) % Lymph % (Auto) 9.8 L (25-40) % [place] % (Auto) 4.8 (3-14) % Eos % (Auto) 0.1 L (2-4) % Baso % (Auto) 0.7 (0-2) % Neut # (Auto) 3400 (8722-4077) /uL Lymph # (Auto) 400 L (5440-9805) /uL [place] # (Auto) 200 (0-900) /uL Eos # (Auto) 0 (0-450) /uL Baso # (Auto) 0 (0-100) /uL PT 11.9 (9.4-12.5) SECONDS INR 1.1 (0.9-1.3) APTT 29 (25.1-36.5) SECONDS D-Dimer 556 H (<500) ng/ml Sodium 133 L (137-145) mmol/L Potassium 4.0 (3.4-5.1) mmol/L Chloride 102 (98-107) mmol/L Carbon Dioxide 23 (22-32) mmol/L BUN 18 H (7-17) mg/dL Creatinine 0.67 (0.52-1.04) mg/dL Estimated GFR > 60 (>60) mL/min BUN/Creatinine Ratio 26.9 H (6-22) Glucose 91 (80-110) mg/dL Calcium 8.2 L (8.4-10.2) mg/dL Magnesium 1.7 (1.6-2.3) mg/dL Total Bilirubin 0.6 (0.2-1.3) mg/dL AST 73 H (14-36) IU/L ALT 41 H (<35) IU/L Alkaline Phosphatase 81 (38-126) U/L Total Creatine Kinase 54 (30-135) U/L Troponin I 0.024 (0.01-0.034) ng/mL NT-Pro-B Natriuret Pep 451 H (<450) pg/mL Total Protein 6.1 L (6.3-8.2) g/dL Albumin 3.4 L (3.5-5.0) g/dL Globulin 2.7 (1.7-4.1) g/dL Albumin/Globulin Ratio 1.3 (1.0-2.8) Lipase 62 61 (23-300) U/L MDM Narrative Medical decision making narrative: CC: Back pain Complicating co-morbidities: Ongoing for approximately 2 months, recent COVID infection treated with Paxlovid, history of kidney stones Data collected from: patient Social determinants of health that may influence the patients condition: Medical records reviewed: ER note from 2 days ago with similar complaints reviewed. CT scan done at that time did not show compression fracture in portions of the spine image, no obvious kidney abnormalities and mentioned of mild peripheral ground-glass opacities in the lung Differential considered: Musculoskeletal pain, compression fracture, pulmonary embolism with lung tissue necrosis as a cause of her pain, recent COVID does put her at slightly higher risk for this. Based on CT scan 48 hours ago abdominal pathology all seems far less likely. No evidence for shingles Exam documented above, pertinent findings include: Patient is uncomfortable in bed uses her entire hand just superior to the left flank to describe her area of pain. No point tenderness Lab Test results independently reviewed as above. Pertinent findings: CBC shows no significant changes from 2 days ago, no anemia Chemistries show normal renal function, slight increase in AST and ALT compared to 48 hours ago Troponin is undetectable BNP is minimally elevated at 451 Urine does not suggest infection D-dimer is minimally elevated at 556 which corrects to normal given her age at 89 Independently reviewed EKG: Sinus rhythm at a rate of 98 with PACs. No acute ischemic changes Imaging studies independently reviewed: Chest x-ray is unremarkable Consultations: Treatments: Re-evaluations: Discussion: 89-year-old woman complains of left-sided pain she describes as her back and points to left posterior lungs and just above her kidney. No evidence of zoster, compression fractures, based on CT scan from 48 hours ago no concern for acute pancreatitis, gallbladder disease, bowel obstruction. Based on a corrected normal D-dimer I do not suspect pulmonary embolism. Based on the CT scan from 48 hours ago she may still have some findings after her recent COVID infection in this is pleuritic pain. At this point ibuprofen and 2.5 mg of oxycodone seems to be effective, ibuprofen and Tylenol alone is not. I have suggested that she try tramadol rather than oxycodone to see if it is slightly less impairing but I do not have additional options for pain control at this point and most likely explanation is either going to be pleuritic or musculoskeletal. There was no evidence of life-threatening etiology no indication for hospitalization or further workup. Discharge Plan Departure Patient Disposition: Home Clinical Impression: Pain, upper back Instructions: DI for Musculoskeletal Pain Activity Restrictions/Additional Instructions: Thank you for coming in today. Based on the studies done 2 days ago and again today, there was a number of things you do not have including: Heart attack, pneumonia, blood clots in your lungs, compression fracture in your thoracic or lumbar spine, pancreatitis, gallbladder disease, constipation, shingles. My most likely explanation at this point is that your pain is due to musculoskeletal issues. You may have a minor amount of pain at the base of your lung from your recent COVID infection, we would treat all of this the same way Using 400 mg of ibuprofen (2 [id number] pills) and 1 Tylenol every 6 hours can be very helpful in controlling pain. You mentioned that oxycodone was helpful but seemed that it was bit too strong. I will give you a prescription for tramadol to see if that is helpful but not quite as sedating. You can use 1 tramadol with 1 Tylenol every 6 hours for pain as needed If you find that you are getting worse or develop any new symptoms, please feel free to return to the emergency department for further evaluation. Prescriptions: New tramadol 25 mg tablet 25 mg PO Q6H PRN (Reason: pain) Qty: 14 0RF No Action (DME) Disabled Parking Permit See Rx Instructions .Route .MEDSUPPLY Qty: 1 0RF Rx Instructions: I find this patient to be medically disabled and qualified for disabled parking as indicated, and signed, on the accompanying application. Paxlovid 300 mg (150 mg x 2)-100 mg tablets,dose pack See Rx Instructions PO .COMPLEX Qty: 30 0RF Rx Instructions: take TWO 150 mg tablets of nirmatrelvir with ONE 100 mg tablet of ritonavir twice daily for 5 days PO levothyroxine 88 mcg tablet 88 mcg PO DAILY Qty: 90 3RF hydrocodone-acetaminophen 5-325 mg tablet 1 tab PO Q6H PRN (Reason: pain) Qty: 10 0RF Referrals: Patricia Palmer DO [Primary Care Provider] - Stand Alone Forms: Patient Portal/API/Survey
[2024-09-18 13:00] LABS: NT-proBNP (BNP-Adult 18+) 451 pg/mL (<450); Troponin I 0.024 ng/mL (0.01-0.034)
--- NOTE | 2024-09-18 13:05 | DI.RAD.S_ITS ---
PROCEDURE: XR THORACIC SPINE 2V INDICATIONS: pain, ? T 8 or 9 Compression fracture TECHNIQUE: 3 views of the thoracic spine were acquired. COMPARISON: [facility], CT, CT ABDOMEN PELVIS W CON, 09/16/2024, 8:39. FINDINGS: Bones: No fractures or dislocations. No suspicious bony lesions. 12 pairs of ribs are noted, and appear intact where visualized. Soft tissues: No paravertebral stripe thickening. IMPRESSION: No compression deformity. Dictated by: Jassi Hidalgo M.D. on 09/18/2024 at 14:11 Approved by: Jassi Hidalgo M.D. on 09/18/2024 at 14:11
[2024-09-18 13:24] LABS: Lipase 61 U/L (23-300)
[2024-09-18 13:26] LABS: D Dimer 556 ng/ml (<500)
[2024-09-18] MEDS: KETOROLAC 30 MG/ML VIAL 15 MG IV (13:43)
== END 2024-09-18 14:35 | disposition home or self-care (01) ==
PROVIDERS: Emergency Provider Emergency Medicine; PCP Family Medicine
DX: M54.6 Pain in thoracic spine (principal); M54.50 Low back pain, unspecified; Z86.16 Personal history of COVID-19
CPT/HCPCS: 36415; 71045; 72070; 80053; 82550; 83690; 83735; 83880; 84484; 85025; 85379; 85610; 85730; 87040; 93005; 96374; 99284; J1885

== ENCOUNTER 2024-09-21 11:16 | Emergency (ER) | payer MEDICARE, OTHER, SELFPAY ==
[2024-09-21] VITALS (15 sets, daily range): BP systolic 157–210; BP diastolic 74–94; PULSE 69–104; RESP 18–25; TEMP 36.9–37.2; O2SAT 94–97; BMI 21.3
--- NOTE | 2024-09-21 11:39 | DI.RAD.S_ITS ---
PROCEDURE: XR CHEST 1V INDICATIONS: weakness, n/v TECHNIQUE: One view of the chest was acquired. COMPARISON: [facility], CT, CT ABDOMEN PELVIS W CON, 09/16/2024, 8:39. [facility], CR, XR CHEST 1V, 09/18/2024, 11:59. FINDINGS: Surgical changes and devices: Right axillary clips are seen. Lungs and pleura: Poorly defined opacities can be seen in both lung bases, right worse than left. Mediastinum: The cardiac contours are within normal limits. The aorta demonstrates calcification and tortuosity. Bones and chest wall: No suspicious bony lesions. Degenerative changes are seen throughout, including involving the right shoulder. Overlying soft tissues appear unremarkable. IMPRESSION: Poorly defined opacities can be seen at both lung bases, right worse than left. These have progressed over time and are attributed to worsening pneumonia. Dictated by: Jesus Crews M.D. on 09/21/2024 at 11:20 Approved by: Jesus Crews M.D. on 09/21/2024 at 11:21
--- NOTE | 2024-09-21 11:44 | EKG_ITS ---
[facility] [address] [place] [address] Test Date: 2024-09-21 Pat Name: Kelsey Robles Department: [facility] Room: Gender: Female Communication Signals Intelligence: MARCELLO : 1935 Requested By: Order Number: [id number] Reading MD: Dutch Grubbs MD Measurements Intervals [place] Rate: 87 P: 63 WI: 164 QRS: -23 QRSD: 74 T: 5 QT: 370 QTc: 445 Interpretive Statements Sinus rhythm with marked sinus arrhythmia Minimal voltage criteria for LVH, may be normal variant ( R in aVL ) Nonspecific ST and T wave abnormality Electronically Signed On 09-22-2024 8:51:17 PDT by Dutch Grubbs MD
[2024-09-21] MEDS: SODIUM CHLORIDE 0.9% 1,000 ML 1000 ML IV (12:24)
[2024-09-21 12:39] LABS: Add Manual Diff / Slide Review NO; Basophils Absolute Auto 0 /uL (0-100); Basophils Percent Auto 0.9 % (0-2); Eosinophils Absolute Auto 0 /uL (0-450); Eosinophils Percent Auto 0.7 % (2-4); Hematocrit 36.9 % (36-46); Hemoglobin 12.4 g/dL (12.0-16.0); Lymphocytes Absolute Auto 500 /uL (1100-4500); Lymphocytes Percent Auto 13.9 % (25-40); Mean Corpuscular HGB Conc 33.5 % (30-36); Mean Corpuscular Hemoglobin 31.7 PG (26-34); Mean Corpuscular Volume 94.6 fL (80-100); Monocytes Absolute Auto 300 /uL (0-900); Monocytes Percent Auto 9.2 % (3-14); Neutrophils Absolute Auto 2900 /uL (1500-7000); Neutrophils Percent Auto 75.3 % (50-75); Platelet Count 235 X10^3/uL (150-400); Red Cell Distribution Width 14.3 % (11.6-14.8); White Blood Cell Count 3.8 X10^3/uL (4.5-11.0)
[2024-09-21 12:54] LABS: Alanine Aminotransferase 28 IU/L (<35); Albumin 3.3 g/dL (3.5-5.0); Albumin Globulin Ratio 1.2 (1.0-2.8); Alkaline Phosphatase 71 U/L (38-126); Aspartate Aminotransferase 45 IU/L (14-36); BUN Creatinine Ratio 27.3 (6-22); Bilirubin Total 0.6 mg/dL (0.2-1.3); Blood Urea Nitrogen 18 mg/dL (7-17); Calcium 8.5 mg/dL (8.4-10.2); Carbon Dioxide 27 mmol/L (22-32); Chloride 104 mmol/L (98-107); Creatine Kinase 31 U/L (30-135); Estimated Glomerular Filt Rate > 60 mL/min (>60); Globulin 2.8 g/dL (1.7-4.1); Glucose 100 mg/dL (80-110); HEMOLYSIS 25 (0-50); Lipase 43 U/L (23-300); Potassium 3.9 mmol/L (3.4-5.1); Sodium 137 mmol/L (137-145); Total Protein 6.1 g/dL (6.3-8.2)
[2024-09-21 12:55] LABS: Lactate (Lactic Acid) 1.3 mmol/L (0.7-2.1)
[2024-09-21 13:06] LABS: NT-proBNP (BNP-Adult 18+) 459 pg/mL (<450); Troponin I < 0.012 ng/mL (0.01-0.034)
[2024-09-21 14:05] LABS: Appearance Urine UA CLEAR; Bilirubin Urine UA 1+ (NEGATIVE); Color Urine UA YELLOW; Glucose Urine UA NEGATIVE (Negative); Ketones Urine UA 3+ (NEGATIVE); Leukocyte Esterase Urine UA NEGATIVE (NEGATIVE); Nitrite Urine UA NEGATIVE (Negative); Occult Blood Urine UA TRACE-LYSED (Negative); Protein Urine UA 1+ (Negative); Specific Gravity Urine UA 1.025 (1.000-1.035); Urobilinogen Urine UA 0.2 E.U./dL (0.2)
[2024-09-21 14:09] LABS: pH Urine UA 5.5 (4.5-8.0)
[2024-09-21 14:12] LABS: Bacteria Urine Occasional (0-1); Culture Indicated Urine Cult Not Indicated; Ictotest Urine Negative (Negative); Mucus Urine 1+ (Negative); RBC Urine 0-1/HPF (0-5/HPF); Squamous Epithelial Cell Urine 0-1 /HPF (0-5/HPF); Urine Volume 10mL (spun); WBC Urine 0-1/HPF (0-5/HPF)
[2024-09-21] MEDS: ONDANSETRON 4 MG/2 ML INJ IV (14:21)
--- NOTE | 2024-09-21 15:33 | ED.GENADULT ---
HPI - General Adult General Chief complaint: Weakness Stated complaint: Sick 3 weeks/needs fluids Time Seen by Provider: 09/21/24 11:39 Source: patient and family Mode of arrival: Ambulatory Limitations: no limitations History of Present Illness HPI narrative: 89-year-old female history of hypothyroidism had COVID 3 weeks ago presents with complaint of a decreased appetite weakness, dizziness nausea with dry heaves and cough. Patient states no fevers at home, no chest pain no shortness of breath. She was has a cough she describes as having clear yellowish productive sputum. She was had decreased appetite with a minimal intake. She has had nausea. No persistent vomiting. She denies abdominal back or flank pain. Denies any dysuria urgency or frequency. No diarrhea or constipation. No new swelling of her extremities. Did receive prescription for tramadol on the but she has been taking. After discussion with her sounds like some of her nausea started at that time so maybe contributing with a narcotic. Patient states her only down to medication is levothyroxine. She was on Paxlovid for her diagnosis of COVID. She was describes allergies to penicillin but states she was had amoxicillin in the past without issue, sulfa and codeine makes her vomit. No regular tobacco, no daily alcohol, no recreational drugs. She was accompanied by her son. Dr. Alma Palmer is her primary care physician Related Data Previous Rx's Medication Instructions Recorded Disabled Parking Permit #1 ea 05/02/23 levothyroxine 88 mcg tablet 88 mcg PO DAILY #90 tabs 01/23/24 nirmatrelvir 300 mg (150 mg See Rx Instructions PO .COMPLEX 09/11/24 x2)-ritonavir 100 mg tablet,dose #30 ea pack (Paxlovid) hydrocodone 5 mg-acetaminophen 325 1 tab PO Q6H PRN pain #10 tabs 25 mg tablet tramadol 25 mg tablet 25 mg PO Q6H PRN pain #14 tabs 09/18/24 amoxicillin 875 mg-potassium 1 tab PO BID #20 tabs 09/21/24 clavulanate 125 mg tablet azithromycin 250 mg tablet See Rx Instructions PO .COMPLEX #4 09/21/24 tabs benzonatate 100 mg capsule 100 mg PO TID PRN cough #10 caps 09/21/24 ondansetron 4 mg disintegrating 4 mg PO Q6H PRN nausea and 09/21/24 tablet vomiting #7 tabs Allergies Allergy/AdvReac Type Severity Reaction Status Date / Time Penicillins Allergy Mild RASH Verified 09/16/24 07:46 Sulfa (Sulfonamide Allergy Mild RASH Verified 09/16/24 07:46 Antibiotics) codeine AdvReac Mild NAUSEA Verified 09/16/24 07:46 Review of Systems Review of Systems ROS Unobtainable: All systems reviewed & are unremarkable except as noted in HPI and below Patient History Medical History Polio Peroneal nerve palsy Arthritis Degenerative joint disease of knee, right Degenerative joint disease of knee, 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 Amblyopia Mitral valve prolapse Hyperlipidemia GERD (gastroesophageal reflux disease) Breast cancer (2001) Surgical History History of carpal tunnel repair (2008) Status post breast lumpectomy (2001) History of knee replacement Status post hysterectomy with oophorectomy (1986) Family History Family/Other Breast cancer Family/Other Breast cancer Social History marital status: number of children: 5 household members: other lives independently: Yes pets and animals: Yes education level: college occupational status: other Smoking Status: Never smoker alcohol intake: never substance use type: does not use Smoking Status: Never smoker Exam Narrative Exam Narrative: GEN: Elderly female, alert and oriented x 3, patient appears to be in mild distress. HEENT: Atraumatic, pupils are equal round reactive to light, extraocular movements are intact, nares are clear, TMs are clear with no fluid, there is no conjunctival pallor. Throat is clear without any exudates, erythema, tonsillar enlargement or uvular deviation HEART: Regular rate and rhythm without murmur, clicks, rubs. LUNGS:Lungs patient is slightly coarse bilateral bases, no wheezes, rales, crackles, chest moves symmetrically, no tachypnea or accessory muscle use. Patient has a harsh cough on exam. ABD:bowel sounds normal, soft, non-tender, no guarding, rebound, rigidity, no masses noted, no hepatosplenomegaly :No CVA tenderness MSCL: Non-tender, no edema bilateral lower extremities. Full range of motion, normal gait NEURO:CN 2-12 intact, sensation normal SKIN: No rash, no erythema no other skin changes Initial Vital Signs Initial Vital Signs: Vital Signs Temperature 98.5 F 09/21/24 11:23 Pulse Rate 104 H 09/21/24 11:23 Respiratory Rate 18 09/21/24 11:23 Blood Pressure 187/79 H 09/21/24 11:23 Pulse Oximetry 97 09/21/24 11:23 Oxygen Delivery Method Room Air 09/21/24 11:23 Course Orders Ordered: Discontinued Medications Amoxicillin/Clavulanate Potassium (Amoxicillin/Clav 875/125 Mg) 1 tab PO NOW ONE Stop: 09/21/24 16:01 Last Admin: 09/21/24 16:12 Dose: 1 tab Documented By: KYLAH Azithromycin (Azithromycin 250 Mg Tablet) 500 mg PO NOW ONE Stop: 09/21/24 16:01 Last Admin: 09/21/24 16:12 Dose: 500 mg Documented By: KYLAH Sodium Chloride (Normal Saline 0.9%) 1,000 mls @ 1,000 mls/hr IV BOLUS ONE Stop: 09/21/24 12:38 Last Infusion: 09/21/24 13:34 Dose: Infused Documented By: Admin: 09/21/24 12:24 Dose: 1,000 mls/hr Documented By: JENNIFER Ondansetron HCl (Ondansetron 4 Mg/2 Ml Inj) 4 mg IV NOW ONE Stop: 09/21/24 14:20 Last Admin: 09/21/24 14:21 Dose: 4 mg Documented By: JENNIFER Vital Signs Vital signs: Vital Signs - 8 hr 09/21/24 11:23 09/21/24 12:07 09/21/24 12:30 Temperature 98.5 F Pulse Rate 104 H 80 Respiratory Rate 18 24 Blood Pressure 187/79 H 157/74 H 157/74 H Pulse Oximetry 97 96 Oxygen Delivery Method Room Air 09/21/24 12:30 09/21/24 13:00 09/21/24 13:00 Temperature Pulse Rate 88 74 Respiratory Rate 23 20 Blood Pressure 167/77 H Pulse Oximetry 96 97 Oxygen Delivery Method 09/21/24 13:30 09/21/24 13:30 09/21/24 13:54 Temperature Pulse Rate 69 91 H Respiratory Rate 20 23 Blood Pressure 183/75 H Pulse Oximetry 96 94 Oxygen Delivery Method 09/21/24 13:54 09/21/24 14:00 09/21/24 14:00 Temperature Pulse Rate 80 Respiratory Rate 24 Blood Pressure 192/81 H 194/81 H Pulse Oximetry 95 Oxygen Delivery Method 09/21/24 14:30 09/21/24 14:30 09/21/24 15:00 Temperature Pulse Rate 77 Respiratory Rate 25 H Blood Pressure 193/82 H 187/94 H Pulse Oximetry 96 Oxygen Delivery Method Room Air 09/21/24 15:00 Temperature Pulse Rate 82 Respiratory Rate 24 Blood Pressure Pulse Oximetry 95 Oxygen Delivery Method Medical Decision Making Lab Data 09/21/24 12:25 09/21/24 12:25 Labs: Lab Results 09/21/24 09/21/24 Range/Units 12:25 13:45 WBC 3.8 L (4.5-11.0) X10^3/uL RBC 3.90 L (4.0-5.2) X10^6/uL Hgb 12.4 (12.0-16.0) g/dL Hct 36.9 (36-46) % MCV 94.6 (80-100) fL MCH 31.7 (26-34) PG MCHC 33.5 (30-36) % RDW 14.3 (11.6-14.8) % Plt Count 235 (150-400) X10^3/uL Neut % (Auto) 75.3 H (50-75) % Lymph % (Auto) 13.9 L (25-40) % [place] % (Auto) 9.2 (3-14) % Eos % (Auto) 0.7 L (2-4) % Baso % (Auto) 0.9 (0-2) % Neut # (Auto) 2900 (4226-8222) /uL Lymph # (Auto) 500 L (9179-0069) /uL [place] # (Auto) 300 (0-900) /uL Eos # (Auto) 0 (0-450) /uL Baso # (Auto) 0 (0-100) /uL Sodium 137 (137-145) mmol/L Potassium 3.9 (3.4-5.1) mmol/L Chloride 104 (98-107) mmol/L Carbon Dioxide 27 (22-32) mmol/L BUN 18 H (7-17) mg/dL Creatinine 0.66 (0.52-1.04) mg/dL Estimated GFR > 60 (>60) mL/min BUN/Creatinine Ratio 27.3 H (6-22) Glucose 100 (80-110) mg/dL Lactate 1.3 (0.7-2.1) mmol/L Calcium 8.5 (8.4-10.2) mg/dL Total Bilirubin 0.6 (0.2-1.3) mg/dL AST 45 H (14-36) IU/L ALT 28 (<35) IU/L Alkaline Phosphatase 71 (38-126) U/L Total Creatine Kinase 31 (30-135) U/L Troponin I < 0.012 (0.01-0.034) ng/mL NT-Pro-B Natriuret Pep 459 H (<450) pg/mL Total Protein 6.1 L (6.3-8.2) g/dL Albumin 3.3 L (3.5-5.0) g/dL Globulin 2.8 (1.7-4.1) g/dL Albumin/Globulin Ratio 1.2 (1.0-2.8) Lipase 43 (23-300) U/L Procalcitonin 0.070 (<0.5) ng/mL Urine Color Yellow Urine Appearance Clear Urine pH 5.5 (4.5-8.0) Ur Specific [place] 1.025 (1.000-1.035) Urine Protein 1+ H (Negative) Urine Glucose (UA) Negative (Negative) g/dL Urine Ketones 3+ H (NEGATIVE) Urine Occult Blood Trace-lysed (Negative) Urine Nitrate Negative (Negative) Urine Bilirubin 1+ H (NEGATIVE) Ur Bilirubin Confirm Negative (Negative) Urine Urobilinogen 0.2 (0.2) E.U./dL Ur Leukocyte Esterase Negative (NEGATIVE) Urine RBC 0-1/hpf (0-5/HPF) Urine WBC 0-1/hpf (0-5/HPF) Ur Squamous Epith Cells 0-1 /hpf (0-5/HPF) Urine Bacteria Occasional (0-1) (None) Urine Mucus 1+ H (Negative) Ur Culture Indicated? Cult not indicated Vol Urine Centrifuged 10ml (spun) ECG Data Attestation: I personally reviewed and interpreted this ECG as follows: Interpretation: Sinus rhythm marked sinus arrhythmia rate 87 NC 164 QRS is 74 QTC of 445, no acute ST elevation or depression nonspecific change. Patient has prior from 09/18/2024. Patient had some nonspecific change. MDM Narrative Medical decision making narrative: EKG shows sinus rhythm sinus arrhythmia nonspecific change White count of 3.8 has been similar last several visits with 6.5 in November of 2023 but was not in the 3 range in October of 2021 hemoglobin is 12.4 platelets are 235 improved from prior. Predominance of neutrophils. Electrolytes are appropriate BUN 18 creatinine 0.6, glucose is 100 AST is 45 ALT, alk-phos bilirubin and lipase are normal BNP is 459 troponins less than 0.012 with a procalcitonin of 0.07 Urine shows 1+ protein 3+ ketones 1+ bili 1 red cell 1 white cell 1 squamous occasional bacteria. Chest x-ray shows poorly defined opacities both lung bases right worse than left progress over time attributed to worsening pneumonia. 89-year-old female with COVID about 3 weeks ago changes on chest x-ray consistent with potential pneumonia with persistent cough. Patient is not hypoxic slightly hypertensive does not appear septic labs are otherwise she was little bit of a leukopenia. Chest x-ray shows what appears to be pneumonia this fits patient has a pretty dry hacking cough here in the department. She does not appear to be septic she was more hypertensive. Workup does not show any signs of sepsis does not show any signs of fluid overload/CHF or cardiac source. Patient has felt very weak but is able to ambulate in the hospital no hypoxia with ambulatory pulse ox here in the department. Has had some nausea or vomiting was able to keep down medications and fluids. Discussed with the patient family we will discharge home with antibiotics, antinausea medication that cough medication with return precautions. Discharge Plan Departure Patient Disposition: Home Clinical Impression: Pneumonia Instructions: DI for Pneumonia -- Adult Activity Restrictions/Additional Instructions: You appear to be developing a pneumonia, please take oral antibiotics until completed. I would expect you to start feeling little bit better with the next 24 hours and feeling much improved within 24-48 hours although not back to normal. You do have blood cultures pending these typically take 48-72 hours to result if they are positive you would be contacted. You can take ondansetron or Zofran 1 tablet every 6 hours as needed for nausea. If you are taking narcotics these can make you nauseated I would take the antinausea medicine 20 minutes before you take any narcotic pain medicine. Can take cough medication as prescribed. Prescription sent to [facility] in [place] Please return if you are developing fevers, new chest pain or shortness of breath, persistent vomiting, lightheadedness or passing out, decrease your no urine output, new abdominal back or flank pain or other new or concerning changes. Prescriptions: New amoxicillin-pot clavulanate 875-125 mg tablet 1 tab PO BID Qty: 20 0RF azithromycin 250 mg tablet See Rx Instructions .ROUTE .COMPLEX Qty: 4 0RF Rx Instructions: For 250 mg dose pack: Patient had 500mg dose in ED, then 250 mg for 4 days (days 2-5) benzonatate 100 mg capsule 100 mg PO TID PRN (Reason: cough) Qty: 10 0RF ondansetron 4 mg tablet,disintegrating 4 mg PO Q6H PRN (Reason: nausea and vomiting) Qty: 7 0RF No Action (DME) Disabled Parking Permit See Rx Instructions .Route .MEDSUPPLY Qty: 1 0RF Rx Instructions: I find this patient to be medically disabled and qualified for disabled parking as indicated, and signed, on the accompanying application. Paxlovid 300 mg (150 mg x 2)-100 mg tablets,dose pack See Rx Instructions PO .COMPLEX Qty: 30 0RF Rx Instructions: take TWO 150 mg tablets of nirmatrelvir with ONE 100 mg tablet of ritonavir twice daily for 5 days PO levothyroxine 88 mcg tablet 88 mcg PO DAILY Qty: 90 3RF tramadol 25 mg tablet 25 mg PO Q6H PRN (Reason: pain) Qty: 14 0RF hydrocodone-acetaminophen 5-325 mg tablet 1 tab PO Q6H PRN (Reason: pain) Qty: 10 0RF Referrals: Patricia Palmer DO [Primary Care Provider] - Stand Alone Forms: Patient Portal/API/Survey
[2024-09-21] MEDS: AMOXICILLIN/CLAV 875/125 MG 1 TAB PO (16:12)
[2024-09-21] MEDS: AZITHROMYCIN 250 MG TABLET 500 MG PO (16:12)
== END 2024-09-21 16:57 | disposition home or self-care (01) ==
PROVIDERS: Emergency Provider Emergency Medicine; PCP Family Medicine
DX: J18.9 Pneumonia, unspecified organism (principal); Z86.16 Personal history of COVID-19; I49.9 Cardiac arrhythmia, unspecified
CPT/HCPCS: 36415; 71045; 80053; 81001; 82550; 83605; 83690; 83880; 84145; 84484; 85025; 87040; 93005; 93010; 96361; 96374; 99284; J2405

== ENCOUNTER 2024-12-20 08:08 | Day surgery (SDC) | payer MEDICARE, OTHER, SELFPAY ==
[2024-12-20] MEDS: LACTATED RINGERS 1,000 ML 42 ML IV (08:43)
[2024-12-20 08:46] VITALS: BP 186/72; PULSE 82; RESP 15; TEMP 36.1; O2SAT 100
--- NOTE | 2024-12-20 09:26 | PM.PREOP ---
Pre-operative Note COVID-19 COVID-19 status: Not tested Interval Note History & Physical reviewed/Exam performed by Physician: Yes Changes to H&P: No ASA Class (for procedural sedation): II
[2024-12-20 09:50] VITALS: BP 138/70; PULSE 82; RESP 20; TEMP 36.3; O2SAT 98
[2024-12-20 09:52] VITALS: BP 137/72; PULSE 73; RESP 17; O2SAT 98
--- NOTE | 2024-12-20 09:53 | PM.OP.EGD ---
Operative Date/Time/Diagnoses Date of procedure: 12/20/24 Time of procedure: 09:53 Pre-op diagnosis: Dysphagia Post-op diagnosis: same Procedure & Clinicians Study performed: Esophagogastroduodenoscopy Same procedure(s) as scheduled: Yes Surgeon: Issa Horne Procedure Notes Procedure in detail: Surgeon: Issa Horne MD Anesthesia: Janette Yo CRNA A timeout was performed. A bite blocked was placed. The patient was positioned in the left lateral decubitus position. Anesthesia was administered. The endoscope was inserted through the bite block and passed down into the esophagus. There was a distal esophageal stricture. The endoscope was able to be advanced through the stricture with gentle pressure. Next the scope was advanced down into the duodenum. The duodenal mucosa appeared normal. The scope was withdrawn into the duodenal bulb and no abnormalities were seen. The scope was withdrawn into the stomach. There were no abnormalities in the stomach. The scope was retroflexed and there was no significant hiatal hernia. The scope was withdrawn into the esophagus and there were no masses or irregularity mucosa within the stricture. There was a small amount blood from pushing the scope through the stricture. The remainder of the esophagus was normal. The scope was withdrawn. The patient was awakened and brought to recovery. Sedation time: 4 minutes Findings: Distal esophageal stricture without mass or mucosal irregularity Post-procedure Disposition: PACU
[2024-12-20 09:54] VITALS: BP 140/76; PULSE 66; RESP 16; O2SAT 98
[2024-12-20 10:06] VITALS: BP 137/62; PULSE 77; RESP 20; O2SAT 98
[2024-12-20 10:12] VITALS: BP 159/72; PULSE 73; RESP 16; O2SAT 96
== END 2024-12-20 10:33 | disposition home or self-care (01) ==
PROVIDERS: PCP Family Medicine; Referring Provider Surgery; Visit Provider Surgery
PROC: 0DJ08ZZ Inspection of Upper Intestinal Tract, Via Natural or Artificial Opening Endoscopic (ICD-10-PCS; CPT 43235; principal; 2024-12-20 09:30)
DX: R13.10 Dysphagia, unspecified (principal); K22.2 Esophageal obstruction; R12 Heartburn
CPT/HCPCS: 43235; J2704

== ENCOUNTER 2025-04-07 07:36 | Day surgery (SDC) | payer MEDICARE, OTHER, SELFPAY ==
[2025-04-07] VITALS (8 sets, daily range): BP systolic 160–184; BP diastolic 72–90; PULSE 72–94; RESP 14–22; TEMP 36.1–36.8; O2SAT 93–99
--- NOTE | 2025-04-07 | PATH_ITS ---
[facility] Accession Number: [id number] No. of containers..01 Tissue . 01 Material submitted: . esophagus - ESOPHAGUS . 01 Clinical history: . R/O EOE . 01 Diagnosis: ESOPHAGUS, BIOPSY: Histologically unremarkable squamous mucosa. Negative for intraepithelial eosinophilia, dysplasia, and malignancy. MRV 04/16/2025 1544 Local . 01 Electronically signed: . Lindsay Richards DO, Pathologist NPI- [id number] . 01 Gross description: . Received one formalin-filled container, labeled with the patient's name and labeled esophagus. Specimen consists of two escobar-zhou fragments of soft tissue, which range in size from 0.1 x 0.1 x 0.1 cm to 0.3 x 0.2 x 0.2 cm. All fragments are totally submitted in one cassette. ([id number]) /LEYLA 04/15/2025 0331 Local . 01 Pathologist provided ICD-10: R13.10 . 01 CPT . 949793 Specimen Comment: A courtesy copy of this report has been sent to [phone] Performed at: [address] [id number] MD Yasir Spears MD Phone: [phone]
[2025-04-07] MEDS: LACTATED RINGERS 1,000 ML 42 ML IV (07:56)
--- NOTE | 2025-04-07 08:20 | P.HP_ITS ---
History of Present Illness History of Present Illness Date Patient Seen: 04/07/25 Chief complaint: EGD Narrative: Dysphagia with known distal esophageal stricture that is ulcerated. Need for dilation. 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 Amblyopia Mitral valve prolapse Hyperlipidemia GERD (gastroesophageal reflux disease) Breast cancer (2001) Surgical History History of carpal tunnel repair (2008) Status post breast lumpectomy (2001) History of knee replacement Status post hysterectomy with oophorectomy (1986) Family History Family/Other Breast cancer Family/Other Breast cancer Social History marital status: number of children: 5 household members: other lives independently: Yes pets and animals: Yes education level: college occupational status: other Smoking Status: Never smoker alcohol intake: never substance use type: does not use Meds Home Medications and Allergies Home Medications ?Medication ?Instructions ?Recorded ?Confirmed ?Type Disabled Parking Permit #1 ea 05/02/23 11/26/24 Rx levothyroxine 88 mcg tablet 88 mcg PO DAILY #90 tabs 0 02/05/25 04/07/25 Rx Allergies Allergy/AdvReac Type Severity Reaction Status Date / Time Penicillins Allergy Mild RASH Verified 12/20/24 08:41 Sulfa (Sulfonamide Allergy Mild RASH Verified 12/20/24 08:41 Antibiotics) amoxicillin (From Augmentin) AdvReac Intermediate Vomiting Verified 12/20/24 08:41 clavulanic acid (From AdvReac Intermediate Vomiting Verified 12/20/24 08:41 Augmentin) codeine AdvReac Mild NAUSEA Verified 11/26/24 09:28 Exam Vital Signs (past 8 hours): - 04/07/25 08:06 Temperature 98.2 F Pulse Rate 94 H Respiratory Rate 20 Blood Pressure 182/75 H Pulse Oximetry 97 Oxygen Delivery Method Room Air Oxygen Delivery Method Room Air Narrative Exam Narrative: Oropharynx free of lesions Chest clear to auscultation percussion Cardiac exam reveals no S3 or murmur Assessment & Plan Assessment & Plan narrative: Substernal dysphagia from ulcerated distal esophageal stricture need for initial dilation. Risks, benefits, alternatives have been explained including the increased risk of perforation. Also warned that this is probably not her only dilation necessary given the tightness of the stricture. Time-Based Coding :: [TOTAL MINUTES] spent with patient and on the chart (including review of chart, obtaining history, exam, reviewing outside data, placing orders, documenting exam and treatment plan, and counseling patient) on [DATE]. PROFEE Paradichlorobenzene Tender Document charge(s): No
--- NOTE | 2025-04-07 08:23 | PM.OP.ENDO ---
Operative Date/Time/Diagnoses Date of procedure: 04/07/25 Time of procedure: 09:16 Pre-op diagnosis: See indication and findings Post-op diagnosis: same Procedure & Clinicians Study performed: EGD with dilation Same procedure(s) as scheduled: Yes Indications: Substernal dysphagia with known ulcerated esophageal stricture Surgeon: May Mantilla Anesthesia Type: Other Procedure Notes Procedure in detail: After informed consent was obtained the patient was placed in left lateral decubitus position. The video upper scope was placed into the oropharynx and with the patient's help swallowed into the esophagus. The esophagus stomach and duodenal were carefully examined. On withdrawal, retroflexed view the GE junction was performed. The scope was removed. The patient tolerated the procedure well. Blood loss none Complications none Sedation mac Findings 1. Esophagus throughout with tertiary contractions. No fixed mucosal lesions were seen. Just to be sure biopsies were taken to rule out eosinophilic esophagitis. 2. Lower esophageal sphincter quite tight but easily passable with the scope. A stricture was seen that seemed to be a bit larger than the scope itself. I elected to use balloons 1st starting with a 12-15 mm balloon which easily moved in place when in the esophageal stricture. We switched to a 15-18 mm going to 16.5 which had some purchase. On withdrawal this was the 1st level that showed any disruption of the stricture. It was elected not to dilate any further. 3. Normal stomach Four. Normal duodenal bulb and sweep Patient should have follow-up in 3-4 weeks with me. In the meantime she should stay on proton pump inhibitors at least once a day. Pantoprazole would be 40 mg once a day which she can get [id number].
== END 2025-04-07 10:31 | disposition home or self-care (01) ==
PROVIDERS: PCP Family Medicine; Referring Provider Internal Medicine Gastroenterology; Visit Provider Internal Medicine Gastroenterology
PROC: 0DJ08ZZ Inspection of Upper Intestinal Tract, Via Natural or Artificial Opening Endoscopic (ICD-10-PCS; CPT 43249; principal; 2025-04-07 09:00)
DX: K22.2 Esophageal obstruction (principal); K22.10 Ulcer of esophagus without bleeding; R13.19 Other dysphagia
CPT/HCPCS: 43249; 43239; J2704; J7120

== ENCOUNTER 2025-04-30 07:42 | Day surgery (SDC) | payer MEDICARE, OTHER, SELFPAY ==
[2025-04-30 08:16] VITALS: BP 182/78; PULSE 89; RESP 16; TEMP 36.6; O2SAT 98
--- NOTE | 2025-04-30 08:21 | P.HP_ITS ---
History of Present Illness
--- NOTE | 2025-04-30 08:21 | PM.HP.IH.1 ---
History of Present Illness History of Present Illness Date Patient Seen: 04/30/25 Chief complaint: EGD w/poss bx Narrative: History of mild esophageal stricture improved after last dilation up to 16.5 mm. Now in for 1 last dilation. 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 Amblyopia Mitral valve prolapse Hyperlipidemia GERD (gastroesophageal reflux disease) Breast cancer (2001) Surgical History History of carpal tunnel repair (2008) Status post breast lumpectomy (2001) History of knee replacement Status post hysterectomy with oophorectomy (1986) Family History Family/Other Breast cancer Family/Other Breast cancer Social History marital status: number of children: 5 household members: other lives independently: Yes pets and animals: Yes education level: college occupational status: other alcohol intake: never substance use type: does not use Meds Home Medications and Allergies Home Medications ?Medication ?Instructions ?Recorded ?Confirmed ?Type Disabled Parking Permit #1 ea 05/02/23 11/26/24 Rx levothyroxine 88 mcg tablet 88 mcg PO DAILY #90 tabs 02/05/25 04/30/25 Rx pantoprazole 40 mg tablet,delayed 40 mg PO DAILY 04/30/25 04/30/25 History release Allergies Allergy/AdvReac Type Severity Reaction Status Date / Time Penicillins Allergy Mild RASH Verified 12/20/24 08:41 Sulfa (Sulfonamide Allergy Mild RASH Verified 12/20/24 08:41 Antibiotics) amoxicillin (From Augmentin) AdvReac Intermediate Vomiting Verified 12/20/24 08:41 clavulanic acid (From AdvReac Intermediate Vomiting Verified 12/20/24 08:41 Augmentin) codeine AdvReac Mild NAUSEA Verified 11/26/24 09:28 Exam Vital Signs (past 8 hours): - 04/30/25 08:16 Temperature 98 F Pulse Rate 89 Respiratory Rate 16 Blood Pressure 182/78 H Pulse Oximetry 98 Oxygen Delivery Method Room Air Oxygen Delivery Method Room Air Narrative Exam Narrative: Oropharynx free of lesions Chest clear to auscultation percussion Cardiac exam reveals no S3 or murmur Assessment & Plan Assessment & Plan narrative: Assessment history of esophageal stricture need for 1 further dilation. Risks, benefits, alternatives have been explained. Time-Based Coding :: [TOTAL MINUTES] spent with patient and on the chart (including review of chart, obtaining history, exam, reviewing outside data, placing orders, documenting exam and treatment plan, and counseling patient) on [DATE]. PROFEE Lease Purchase Driver Document charge(s): No
--- NOTE | 2025-04-30 08:23 | P.OP.ENDO_ITS ---
Operative Date/Time/Diagnoses
--- NOTE | 2025-04-30 08:23 | PM.OP.ENDO ---
Operative Date/Time/Diagnoses Date of procedure: 04/30/25 Time of procedure: 09:43 Pre-op diagnosis: See indication Dysphagia with need for further esophageal dilation. Post-op diagnosis: other (See findings) Procedure & Clinicians Study performed: EGD with dilation Same procedure(s) as scheduled: No Indications: Dysphagia Surgeon: May Mantilla Anesthesia Type: Other Procedure Notes Procedure in detail: After informed consent was obtained patient was placed in left lateral decubitus position. The video upper scope was placed into the oropharynx and with the patient's help swallowed the esophagus. The esophagus stomach duodenal were carefully examined. On withdrawal, retroflexed view the GE junction was performed. The scope was removed. The patient tolerated procedure well. Blood loss none Complications none Sedation mac Findings 1. Normal esophagus until the GE junction. Here there appeared to be quite the puckered at the GE junction. Still, the scope was fairly easy to pass. Retroflexed view showed no evidence of inflammatory stricture. There was however a little Schatzki's ring that was easily traversed and present with 2-3 mm diameter space between the scope and the esophagus. It was elected to perform Savary dilation. This was done standard fashion to 51 [address]. There were no complications 2. Normal stomach 3. Normal duodenal bulb and sweep Patient will just keep in touch in call us should she have recurrent symptoms. If she does have recurrent sepsis I think some of her biggest issues are from a motility rather than a fixed stricture. We should then refer her for esophageal manometry if she has recurrence. Estimated Blood Loss: 0 Complications: none
[2025-04-30] MEDS: LACTATED RINGERS 1,000 ML 42 ML IV (08:27)
[2025-04-30 09:41] VITALS: BP 151/67; PULSE 64; RESP 16; TEMP 36.3; O2SAT 98
[2025-04-30 09:51] VITALS: BP 161/69; PULSE 69; RESP 18; TEMP 36.3; O2SAT 97
[2025-04-30 09:59] VITALS: BP 180/74; PULSE 64; RESP 18; TEMP 36.3; O2SAT 97
--- NOTE | 2025-04-30 10:08 | SUR.PHASEII ---
Pt with sore throat and post dilation pain. States it really hurts Able to sip water. States she didn't think she would be able to swallow pills yet. See new orders from Dr Neal via telephone.
[2025-04-30] MEDS: BENZOCAINE/MENTHOL 1 LOZ PKT 1 EACH PO (10:15)
[2025-04-30] MEDS: ACETAMINOPHEN IV 1,000 MG/100 ML VIAL 400 MG IV (10:15)
--- NOTE | 2025-04-30 10:17 | SUR.PHASEII ---
Dr Mantilla to bedside. Discussed with patient sore throat and epigastric pain. Plan re-eval after IV acetaminophen and cepacol.
[2025-04-30 10:20] VITALS: TEMP 36.3
[2025-04-30 10:40] VITALS: BP 151/67; PULSE 72; RESP 14; TEMP 36.3; O2SAT 98
== END 2025-04-30 10:55 | disposition home or self-care (01) ==
PROVIDERS: PCP Family Medicine; Referring Provider Internal Medicine Gastroenterology; Visit Provider Internal Medicine Gastroenterology
PROC: 0DJ08ZZ Inspection of Upper Intestinal Tract, Via Natural or Artificial Opening Endoscopic (ICD-10-PCS; CPT 43248; principal; 2025-04-30 09:00)
DX: R13.10 Dysphagia, unspecified (principal); K22.2 Esophageal obstruction
CPT/HCPCS: 43248; J0131; J2704; J7120

== ENCOUNTER → 2025-05-19 07:47 | Outpatient (CLI) | payer MEDICARE, OTHER, SELFPAY ==
--- NOTE | 2025-05-19 08:53 | DI.ECHO.S_ITS ---
[facility]+ [facility] : : [id number] : [place] [address] : : [id number] : : Phone: [phone] Echocardiogram Report + + :Name: NATHANAEL JAIMES Study Date: 05/19/2025 Height: 61 in : :[facility] ReadingLocation: Weight: 117 lb : : Gender: Female BSA: 1.5 m2 : :: 1935 Age: 89 yrs BP: 173/85 mmHg: :Reason For Study: PALPITATIONS : :Ordering Physician: IRENE, : :DENISE Performed By: Kory Benton : :Referring: DENISE BONILLA : + + Interpretation Summary Normal sinus rhythm with frequent PAC's; uncontrolled hypertension. Normal LV size, wall thickness, wall motion and LV systolic function. EF is 60-65% Mild LA enlargement; otherwise normal chamber sizes. Aortic sclerosis with mild-moderate associated aortic regurgitation. Mild mitral annular calcification. No significant valve abnormalities. No prior study available for comparison. Procedure: A two-dimensional transthoracic echocardiogram with color flow and Doppler was performed. The study quality was technically good. There is no prior echocardiogram noted for this patient. The patient was in normal sinus rhythm during the exam. The patient had frequent PACs during the exam. Left Ventricle: The left ventricle is normal in size. There is normal left ventricular wall thickness. There is no ventricular septal defect visualized. A false chord is noted (normal variant). The ejection fraction is estimated to be 60-65%. There are no focal wall motion abnormalities. Diastolic function could not be accurately assessed due to atrial fibrillation. Right Ventricle: The right ventricle is normal in size and function. Atria: The left atrium is mildly dilated. Right atrial size is normal. There is no Doppler evidence for an interatrial shunt. Mitral Valve: There is mild mitral annular calcification. The mitral valve leaflets are mildly calcified. There is trace mitral regurgitation. Aortic Valve: The aortic valve is trileaflet. The aortic valve opens well. There is mild to moderate aortic regurgitation. Tricuspid Valve: The tricuspid valve leaflets are thin and pliable. There is mild tricuspid regurgitation. The right ventricular systolic pressure is estimated to be at least 35 mmHg based on an estimated right atrial pressure of 3 mm Hg. Pulmonic Valve: The pulmonic valve is not well visualized. There is trace pulmonic regurgitation. Great Vessels: The aortic root is normal size. The dimensions of the ascending aorta are normal. The pulmonary artery is normal size. The IVC is of normal diameter and collapses greater than 50% with a sniff. This suggests a low right atrial pressure of 3 mm Hg. Pericardium/ Pleura There is no pericardial effusion. There is no pleural effusion. MMode/2D Measurements & Calculations LVIDd: 4.9 cm LVOT diam: 2.0 cm LVIDs: 3.3 cm Ao root diam: 2.9 cm FS: 32.2 % asc Aorta Diam: 3.2 cm EPSS: 0.55 cm IVSd: 0.90 cm LVPWd: 0.66 cm LV byrnes. diameter/BSA (cm/m^2): 3.2 LV sys. diameter/BSA (cm/m^2): 2.2 LA A2 area: 20.0 cm2 RA long axis: 5.0 cm LA A4 area: 16.3 cm2 RA area: 17.0 cm2 LA length (vol): 5.0 cm RA vol: 48.9 ml LA vol: 55.1 ml RA : 32.5 ml/m2 LA vol index: 36.7 ml/m2 IVC diam: 1.0 cm RVD1 (basal): 3.3 cm RVD2 (mid): 2.1 cm TAPSE: 3.0 cm Doppler Measurements & Calculations Ao V2 max: 183.6 cm/sec LVOT Max Cristobal: 147.6 cm/sec Ao V2 mean: 127.3 cm/sec LV V1 max P.7 mmHg Ao max P.5 mmHg LV V1 VTI: 31.9 cm Ao mean P.2 mmHg LORI(I,D): 2.2 cm2 Ao V2 VTI: 43.1 cm LORI(V,D): 2.4 cm2 sev ratio: 0.74 LORI indexed to BSA (cm^2/m^2): 1.5 AI P1/2t: 481.3 msec AI dec slope: 297.0 cm/sec2 MV E max cristobal: 79.5 cm/sec TR max cristobal: 280.6 cm/sec MV A max cristobal: 89.2 cm/sec TR max P.5 mmHg MV E/A: 0.89 PA V2 max: 141.0 cm/sec Med Peak E' Cristobal: 6.3 cm/sec PA V2 mean: 97.9 cm/sec E/E' med: 12.6 PA mean P.3 mmHg Lat Peak E' Cristobal: 7.8 cm/sec PA pr(Accel): 46.5 mmHg E/E' lat: 10.2 E/e' average: 11.4 MV dec time: 0.22 sec SV(LVOT): 96.4 ml Electronically signed by: Chikis Leos M.D. on [facility] Physician:05/20/2025 04:55 AM
== END ==
LOC: ECHO 07:48
PROVIDERS: PCP Family Medicine; Referring Provider Family Medicine; Visit Provider Family Medicine
DX: I08.3 Combined rheumatic disorders of mitral, aortic and tricuspid valves (principal); R00.2 Palpitations; I10 Essential (primary) hypertension; R60.0 Localized edema; E03.9 Hypothyroidism, unspecified; I73.00 Raynaud's syndrome without gangrene; Z85.3 Personal history of malignant neoplasm of breast
CPT/HCPCS: 93306

== ENCOUNTER → 2025-06-11 11:00 | Outpatient (CLI) | payer MEDICARE, OTHER, SELFPAY ==
[2025-06-11 12:31] LABS: Add Manual Diff / Slide Review NO; Hematocrit 39.1 % (36-46); Hemoglobin 13.1 g/dL (12.0-16.0); Lymphocytes Absolute Auto 1200 /uL (1100-4500); Mean Corpuscular HGB Conc 33.4 % (30-36); Mean Corpuscular Hemoglobin 31.7 PG (26-34); Mean Corpuscular Volume 94.9 fL (80-100); Platelet Count 269 X10^3/uL (150-400)
[2025-06-11 13:16] LABS: Alanine Aminotransferase 13 IU/L (<35); Albumin 3.7 g/dL (3.5-5.0); Albumin Globulin Ratio 1.4 (1.0-2.8); Alkaline Phosphatase 95 U/L (38-126); Blood Urea Nitrogen 24 mg/dL (7-17); Calcium 9.0 mg/dL (8.4-10.2); Carbon Dioxide 29 mmol/L (22-32); Chloride 106 mmol/L (98-107); Cholesterol 289 mg/dL (140-199); Estimated Glomerular Filt Rate > 60 mL/min (>60); Globulin 2.6 g/dL (1.7-4.1); Glucose 98 mg/dL (70-99); HDL Cholesterol 98 mg/dL (40-60); HEMOLYSIS < 15 (0-50); Potassium 4.8 mmol/L (3.4-5.1); Sodium 140 mmol/L (137-145); Total Protein 6.3 g/dL (6.3-8.2); Triglycerides 63 mg/dL (35-150)
[2025-06-11 13:43] LABS: TSH w/ Reflex to FT4 3.97 uIU/mL (0.47-4.68)
== END ==
PROVIDERS: PCP Family Medicine; Referring Provider Family Medicine; Visit Provider Family Medicine
DX: I10 Essential (primary) hypertension (principal); R13.19 Other dysphagia; I73.00 Raynaud's syndrome without gangrene; E03.9 Hypothyroidism, unspecified; R60.0 Localized edema; Z85.3 Personal history of malignant neoplasm of breast
CPT/HCPCS: 36415; 80053; 80061; 84443; 85025